=== PATIENT | female | born 1975 | race African-American/Black ===

== ENCOUNTER 2017-06-21 06:00 | Observation (INO) | payer MEDICAID ==
[2017-06-21] VITALS (11 sets, daily range): BP systolic 127–189; BP diastolic 82–122; PULSE 62–89; RESP 16–19; TEMP 98.3–98.6; O2SAT 97–100
[~2017-06-21] VITALS: Ht 152.4 cm; Wt 51.0 kg
[~2017-06-21 06:00] MED LIST: ZOFR4TAB3 SL
--- NOTE | 2017-06-21 06:19 | PD ---
HPI Chief Complaint: Chest Pain Time Seen by Provider: 06:15 Travel History International Travel<30 days: No Contact w/Intl Traveler<30days: No Traveled to known affect area: No History of Present Illness HPI The patient is a 42 year old female who presents to the [facility] emergency department with a history of chest pain that began 3 days ago. the pain is in the center of her chest to her back. right sided flank pain. It is constant and worsening with time. It is sharp in character. She has associated shortness of breath. It became unbearable at 8:30 PM last night. The pain is worse with taking a deep breath. She has had nausea and vomiting 1 x per day. She smokes 3-4 cigarettes per day. She denies any prior history of hypertension , hyperlipidemia, or diabetes mellitus. She denies having any known family history of heart disease. The patient reports that she last had a physical exam in November 2016. She denies having any prior history of stress testing. She denies any trauma to her chest. She denies participating in any new exercise program. She denies on review of systems any recent fevers, cough, congestion, neck pain, abdominal pain, vomiting, diarrhea, urinary symptoms, or neurologic symptoms. She denies having any lower extremity edema, calf pain, or erythema. She denies any prior history of DVT or PE. LMP: 06/11/17 PCP: Dr. Sheets. [facility] Past Medical History Narrative Medical The patient's past medical history is reportedly none. However, on review of the patient's electronic medical record the patient has been hypertensive on multiple evaluations in the emergency department. Medical History: Denies Significant Hx Diminished Hearing: No Immunizations Current: Yes ?: Not Past Surgical History Surgical History: No Previous Surgery Social History Alcohol Use: No Tobacco Use: Yes (3-5 cig a day x 4 yrs) Substance Use: No (DENIES) Allergies-Medications (Allergen,Severity, Reaction): Coded Allergies: No Known Allergies (Verified Adverse Reaction, Unknown, 06/21/17) Reported Meds & Prescriptions Reported Meds & Active Scripts Active Zofran Odt (Ondansetron Odt) 4 Mg Tab 4 Mg SL Q6HR PRN Review of Systems Except as stated in HPI: all other systems reviewed are Neg General / Constitutional: No: Fever Eyes: No: Visual changes HENT: No: Headaches Cardiovascular: Positive: Chest Pain or Discomfort Respiratory: Positive: Shortness of Breath Gastrointestinal: No: Abdominal Pain Genitourinary: No: Dysuria Musculoskeletal: No: Pain Skin: No Rash Neurologic: No: Weakness Psychiatric: No: Depression Endocrine: No: Polydipsia Hematologic/Lymphatic: No: Easy Bruising Physical Exam Narrative General: The patient is a well-developed well-nourished female in no acute distress. Head and Neck exam: Head is normocephalic atraumatic. Eyes: EOMI, pupils are equal round and reactive to light. Nose: Midline septum with pink mucous membranes Mouth: Dentition unremarkable. Moist mucus membranes. Posterior oropharynx is not erythematous. No tonsillar hypertrophy. Uvula midline. Airway patent. Neck: No palpable lymphadenopathy. No nuchal rigidity. No thyromegaly. Cardiovascular: Regular rate and rhythm without murmurs, gallops, or rubs. No pulse deficit to the extremities on simultaneous auscultation and palpation of her radial artery. Lungs: Clear to auscultation bilaterally. No wheezes, rhonchi, or rales. Abdomen: Soft, without tenderness to palpation in all 4 quadrants of the abdomen. No guarding, rebound, or rigidity. Normal bowel sounds are audible. No tenderness on palpation of McBurney's point. Extremities: No clubbing, cyanosis, or edema. 2+ pulses in all 4 extremities. No calf tenderness on palpation. Back: No spinous process tenderness to palpation. No costovertebral angle tenderness to palpation. Neurologic Exam: Grossly nonfocal. Skin Exam: No rash noted. Intact skin that is warm and dry. Data Data Last Documented VS Vital Signs Date Time Temp Pulse Resp B/P (MAP) Pulse Ox O2 Delivery O2 Flow Rate FiO2 06/21/17 06:47 70 18 189/115 (139) 100 Room Air 06/21/17 06:01 98.6 Orders Orders Electrocardiogram (06/21/17 06:18) B-Type Natriuretic Peptide (06/21/17 06:18) Ckmb (Isoenzyme) Profile (06/21/17 06:18) Complete Blood Count With Diff (06/21/17 06:18) Comprehensive Metabolic Panel (06/21/17 06:18) D-Dimer (06/21/17 06:18) Magnesium (Mg) (06/21/17:18) Prothrombin Time / Inr (Pt) (06/21/17:18) Act Partial Throm Time (Ptt) (06/21/17:18) Troponin I (06/21/17:18) Lipase (06/21/17:18) Chest, Single Ap (06/21/17:18) Ecg Monitoring (06/21/17:18) Bilateral Bp Monitoring (06/21/17:18) Iv Access Insert/Monitor (06/21/17:18) Oximetry (06/21/17:18) Oxygen Administration (06/21/17:18) Aspirin Chew (Aspirin Chew) (06/21/17 06:30) Nitroglycerin 2% Oint (Nitroglycerin 2% (06/21/17:30) Sodium Chloride 0.9% Flush (Ns Flush) (06/21/17:30) Sodium Chlorid 0.9% 500 Ml Inj (Ns 500 M (06/21/17 06:30) Ed Urine Pregnancytest Poc (06/21/17:18) Labs Laboratory Tests Test 06/21/17 06:30 White Blood Count 5.1 TH/MM3 Red Blood Count 4.04 MIL/MM3 Hemoglobin 11.8 GM/DL Hematocrit 35.9 % Mean Corpuscular Volume 88.9 FL Mean Corpuscular Hemoglobin 29.1 PG Mean Corpuscular Hemoglobin Concent 32.7 % Red Cell Distribution Width 13.4 % Platelet Count 234 TH/MM3 Mean Platelet Volume 8.8 FL Neutrophils (%) (Auto) 39.3 % Lymphocytes (%) (Auto) 44.0 % Monocytes (%) (Auto) 11.5 % Eosinophils (%) (Auto) 3.5 % Basophils (%) (Auto) 1.7 % Neutrophils # (Auto) 2.0 TH/MM3 Lymphocytes # (Auto) 2.3 TH/MM3 Monocytes # (Auto) 0.6 TH/MM3 Eosinophils # (Auto) 0.2 TH/MM3 Basophils # (Auto) 0.1 TH/MM3 CBC Comment DIFF FINAL Differential Comment MDM Medical Decision Making Medical Screen Exam Complete: Yes Emergency Medical Condition: Yes Medical Record Reviewed: Yes Interpretation(s) Last Impressions Chest X-Ray 06/21/17617 Signed Impressions: Service Date/Time: Wednesday, June 21, 2017 06:21 - CONCLUSION: 1. No acute cardiopulmonary disease. Brian Alvarenga MD Differential Diagnosis Acute coronary syndrome, versus aortic dissection, versus pulmonary embolism, versus pneumonia, versus pneumothorax, versus pleurisy, versus costochondritis Narrative Course During the course of the patients emergency department visit, the patients history, examination, and differential diagnosis were reviewed with the patient. The patient was placed on a desk monitor with oximetry and frequent blood pressure monitoring. The patient had IV access obtained and blood work sent for analysis. The patient had an ECG done on arrival that shows a sinus rhythm heart rate of 68, voltage criteria are met for LVH, QRS duration is 74 ms , QTC [address] segment elevation. T waves are inverted in V1. The patient was initially provided aspirin 324 mg by mouth 1, nitroglycerin 1 inch to chest wall. Normal saline a 500 mL bolus 1. The patients laboratory studies were reviewed and remarkable for a CBC that shows a white count of 5.1, hemoglobin 11.8, platelets 234 with monocytes 11.5 Radiology studies were reviewed and remarkable for a chest x-ray that shows no acute cardiopulmonary disease. The patient's chemistry and cardiac enzymes as well as PT PTT and d-dimer are pending at the conclusion of my shift. The patient's case will be checked out to the oncoming emergency physician to disposition the patient based on the conclusion of the patient's workup. Diagnosis Primary Impression: Chest pain, rule out acute myocardial infarction Additional Impression: Hypertension Qualified Codes: I10 - Essential (primary) hypertension Fany Walker MD Jun 21, 2017 06:19
[2017-06-21] MEDS ORDERED: ASPIRIN 81 MG CHEW TAB PO ONE (06:30)
[2017-06-21] MEDS ORDERED: SODIUM CHLORIDE 0.9% FLUSH 10 ML FLUSH IVF PRN ×2 (06:30→13:30)
[2017-06-21] MEDS ORDERED: NITROGLYCERIN 2% OINT 1 GM PACKET TOP ONE (06:30)
[2017-06-21] MEDS ORDERED: SODIUM CHLORID 0.9% 500 ML INJ 500 ML IV ONE (06:30)
--- NOTE | 2017-06-21 06:43 | RADRPT ---
EXAM DATE/TIME: 06/21/2017 06:21 [facility] COMPARISON: CHEST SINGLE AP, June 19, 2016, 3:26. INDICATIONS : Chest pain and headache x 2 days MEDICAL HISTORY : Hypertension. SURGICAL HISTORY : None. ENCOUNTER: Initial ACUITY: 2 days PAIN SCORE: 7/10 LOCATION: Bilateral chest FINDINGS: A single view of the chest demonstrates the lungs to be symmetrically aerated without evidence of mas s, infiltrate or effusion. The cardiomediastinal contours are unremarkable. Osseous structures are intact. CONCLUSION: 1. No acute cardiopulmonary disease. Brian Alvarenga MD on June 21, 2017 at 6:42 Board Certified Radiologist. This report was verified electronically.
[2017-06-21 06:55] LABS: BASOPHIL # 0.1 TH/MM3 (0-0.2); BASOPHIL % 1.7 % (0.0-2.0); EOSINOPHIL # 0.2 TH/MM3 (0-0.4); EOSINOPHIL % 3.5 % (0.0-4.0); HEMATOCRIT 35.9 % (35.0-46.0); HEMO FLAGS DIFF FINAL; LYMPHOCYTE # 2.3 TH/MM3 (1.0-4.8); MEAN CELL VOLUME 88.9 FL (80.0-100.0); MEAN CORPUSCULAR HEMOGLOBIN 29.1 PG (27.0-34.0); MEAN CORPUSCULAR HGB CONC 32.7 % (32.0-36.0); MONO % 11.5 % (0.0-8.0); NEUT % 39.3 % (16.0-70.0); PLATELET COUNT 234 TH/MM3 (150-450); RED BLOOD COUNT 4.04 MIL/MM3 (4.00-5.30); RED CELL DISTRIBUTION WIDTH 13.4 % (11.6-17.2); WHITE BLOOD COUNT 5.1 TH/MM3 (4.0-11.0)
[2017-06-21 07:10] LABS: APTT (PATIENT) 26.2 SEC (24.3-30.1); PROTHROMBIN TIME - PATIENT 10.7 SEC (9.8-11.6)
[2017-06-21 07:22] LABS: ANION GAP 9 MEQ/L (5-15); AST (GOT) 16 U/L (15-37); BICARBONATE 24.5 MEQ/L (21.0-32.0); BLOOD UREA NITROGEN 16 MG/DL (7-18); CHLORIDE 104 MEQ/L (98-107); GLOMERULAR FILTRATION RATE 98 ML/MIN (>89); MAGNESIUM 1.9 MG/DL (1.5-2.5); POTASSIUM 3.4 MEQ/L (3.5-5.1); SODIUM (NA) 137 MEQ/L (136-145)
[2017-06-21 07:28] LABS: ALKALINE PHOSPHATASE 62 U/L (45-117); ALT (GPT) 16 U/L (10-53); CREATINE KINASE 123 U/L (26-192); TOTAL BILIRUBIN ADULT 0.5 MG/DL (0.2-1.0)
--- NOTE | 2017-06-21 07:35 | PD ---
Physical Exam Date Seen by Provider: Jun 21, 2017 Time Seen by Provider: 07:00 Narrative The patient was signed out to me by Dr. Fany Walker at change of shift. The patient presented with complaints of chest pain 3 days. The patient was also noted to have elevated pressure. She reported headache as well. The patient's EKG and cardiac enzymes show no evidence of acute process. The patient had been given an aspirin and nitroglycerin. She's also had an inch of Nitropaste placed on her anterior chest wall. Data Data Last Documented VS Vital Signs Date Time Temp Pulse Resp B/P (MAP) Pulse Ox O2 Delivery O2 Flow Rate FiO2 06/21/17 07:12 71 19 186/122 (143) 100 Room Air 06/21/17 06:01 98.6 Orders Orders Electrocardiogram (06/21/17:18) B-Type Natriuretic Peptide (06/21/17:18) Ckmb (Isoenzyme) Profile (06/21/17:18) Complete Blood Count With Diff (06/21/17:18) Comprehensive Metabolic Panel (06/21/17:18) D-Dimer (06/21/17:18) Magnesium (Mg) (06/21/17:18) Prothrombin Time / Inr (Pt) (06/21/17:18) Act Partial Throm Time (Ptt) (06/21/17:18) Troponin I (06/21/17:18) Lipase (06/21/17:18) Chest, Single Ap (06/21/17:18) Ecg Monitoring (06/21/17:18) Bilateral Bp Monitoring (06/21/17:18) Iv Access Insert/Monitor (06/21/17:18) Oximetry (06/21/17:18) Oxygen Administration (06/21/17:18) Aspirin Chew (Aspirin Chew) (06/21/17 06:30) Nitroglycerin 2% Oint (Nitroglycerin 2% (06/21/17 06:30) Sodium Chloride 0.9% Flush (Ns Flush) (06/21/17 06:30) Sodium Chlorid 0.9% 500 Ml Inj (Ns 500 M (06/21/17 06:30) Ed Urine Pregnancytest Poc (11/6/17 06:18) CKMB (06/21/17 06:30) CKMB% (06/21/17 06:30) Admit Order (Ed Use Only) (06/21/17 07:36) Labs Laboratory Tests Test 06/21/17 06:30 White Blood Count 5.1 TH/MM3 Red Blood Count 4.04 MIL/MM3 Hemoglobin 11.8 GM/DL Hematocrit 35.9 % Mean Corpuscular Volume 88.9 FL Mean Corpuscular Hemoglobin 29.1 PG Mean Corpuscular Hemoglobin Concent 32.7 % Red Cell Distribution Width 13.4 % Platelet Count 234 TH/MM3 Mean Platelet Volume 8.8 FL Neutrophils (%) (Auto) 39.3 % Lymphocytes (%) (Auto) 44.0 % Monocytes (%) (Auto) 11.5 % Eosinophils (%) (Auto) 3.5 % Basophils (%) (Auto) 1.7 % Neutrophils # (Auto) 2.0 TH/MM3 Lymphocytes # (Auto) 2.3 TH/MM3 Monocytes # (Auto) 0.6 TH/MM3 Eosinophils # (Auto) 0.2 TH/MM3 Basophils # (Auto) 0.1 TH/MM3 CBC Comment DIFF FINAL Differential Comment Prothrombin Time 10.7 SEC Prothromb Time International Ratio 1.0 RATIO Activated Partial Thromboplast Time 26.2 SEC D-Dimer Quantitative (PE/DVT) 0.22 MG/L FEU Blood Urea Nitrogen 16 MG/DL Creatinine 0.79 MG/DL Random Glucose 87 MG/DL Total Protein 7.4 GM/DL Albumin 3.7 GM/DL Calcium Level 8.5 MG/DL Magnesium Level 1.9 MG/DL Alkaline Phosphatase 62 U/L Aspartate Amino Transf (AST/SGOT) 16 U/L Alanine Aminotransferase (ALT/SGPT) 16 U/L Total Bilirubin 0.5 MG/DL Sodium Level 137 MEQ/L Potassium Level 3.4 MEQ/L Chloride Level 104 MEQ/L Carbon Dioxide Level 24.5 MEQ/L Anion Gap 9 MEQ/L Estimat Glomerular Filtration Rate 98 ML/MIN Total Creatine Kinase 123 U/L Creatine Kinase MB LESS THAN 0.5 NG/ML Troponin I LESS THAN 0.02 NG/ML B-Type Natriuretic Peptide 14 PG/ML Lipase 147 U/L MDM Medical Record Reviewed: Yes Supervised Visit with KODY: No Narrative Course 42-year-old female presents with chest pain 3 days. Patient also reported headache. Blood pressure noted to be elevated. She's had elevated blood pressure on previous visits. She is currently not on any medication for her blood pressure. The patient does smoke cigarettes. EKG and cardiac enzymes are negative for acute process. The patient was initially going to be admitted to the chest pain center however she developed a headache and started vomiting. Given this and her elevated blood pressure, the chest pain center admission was canceled. CT brain ordered which shows no evidence of acute intracranial pathology. The patient be admitted to on-call medicine team. Diagnosis Primary Impression: Chest pain, rule out acute myocardial infarction Additional Impressions: Hypertensive urgency Cephalgia Admitting Information Admitting Physician Requests: Observation Joe Gomez MD Jun 21, 2017 07:35
[2017-06-21 07:40] LABS: CKMB LESS THAN 0.5 NG/ML (0.5-3.6)
[2017-06-21] MEDS ORDERED: METOPROLOL TARTRATE 5 MG/5 ML VIAL IV PUSH ONE (07:45)
--- NOTE | 2017-06-21 08:12 | EKG ---
Date Performed: 06/21/2017 Time Performed: 06:28:41 PTAGE: 42 years EKG: Sinus rhythm VOLTAGE CRITERIA FOR LVH ABNORMAL ECG PREVIOUS TRACING : 06/19/2016 04.27 No significant change from previous tracing noted. DOCTOR: Tyrone Berrios Interpretating Date/Time 06/21/2017 08:11:16
[2017-06-21] MEDS ORDERED: ONDANSETRON HCL 4 MG/2 ML VIAL IV PUSH ONE (09:15)
--- NOTE | 2017-06-21 09:20 | RADRPT ---
EXAM DATE/TIME: 06/21/2017 09:11 [facility] COMPARISON: No previous studies available for comparison. INDICATIONS : Chest pain. Hypertension. Cephalgia. RADIATION DOSE: 30.91 CTDIvol (mGy) MEDICAL HISTORY : None SURGICAL HISTORY : None. ENCOUNTER: Initial ACUITY: 1 day PAIN SCALE: 6/10 LOCATION: cranial TECHNIQUE: Multiple contiguous axial images were obtained of the head. Using automated exposure control and adj ustment of the mA and/or kV according to patient size, radiation dose was kept as low as reasonably a chievable to obtain optimal diagnostic quality images. DICOM format image data is available electro nically for review and comparison. FINDINGS: CEREBRUM: The ventricles are normal for age. No evidence of midline shift, mass lesion, hemorrhage or acute in farction. No extra-axial fluid collections are seen. POSTERIOR FOSSA: The cerebellum and brainstem are intact. The 4th ventricle is midline. The cerebellopontine angle i s unremarkable. EXTRACRANIAL: The visualized portion of the orbits is intact. SKULL: The calvaria is intact. No evidence of skull fracture. CONCLUSION: No acute intracranial disease. Basim Morris MD on June 21, 2017 at 9:17 Board Certified Radiologist. This report was verified electronically.
[2017-06-21] MEDS ORDERED: SODIUM CHLORIDE 0.9% FLUSH 10 ML FLUSH IV FLUSH PRN (10:45)
[2017-06-21] MEDS: SODIUM CHLORIDE 0.9% FLUSH 10 ML FLUSH IV FLUSH SCH ×2 (11:00→21:13)
[2017-06-21] MEDS ORDERED: MORPHINE SULFATE 4 MG/ML INJ IV PUSH ONE (11:15)
[2017-06-21] MEDS ORDERED: BAYE325T PO (12:26)
--- NOTE | 2017-06-21 12:36 | HHI.HP ---
HPI Service Family Medicine Primary Care Physician No Primary Care Physician Admission Diagnosis Chest pain, hypertension Diagnoses: International Travel<30 Days: No Contact w/Intl Traveler<30days: No Known Affected Area: No History of Present Illness Mrs. Dutton is a 42 yo F patient of with PMH of anxiety who presents to [facility] with chest pain, shortness of breath, headaches, and back pain. Patient's chest pain has been present for 4 days; it is central and radiates to central back. Patient feels that pain is "electrifying" in nature. Pain is present when she is active but not at rest; she states that it is when she gets "winded." Pain is 9/10 in severity when present; not present otherwise. Duration of pain based on activity duration. Patient concerned that her "lungs will collapse" due to associated shortness of breath. Patient has chronic shortness of breath when sleeping; no cough or sputum. Patient has chronic headaches; headaches last for 1-4+ hrs and occur multiple times a week; patient sometimes gets vision changes with headaches. Patient also has difficulty sleeping chronically. Patient has vomiting when eating food recently but has not vomited in several days due to lack of oral intake [Per EMR review, patient last seen 06/18 for vomiting, diarrhea. CBC, BMP, lipase wnl. CXR wnl. EKG unremarkable. test negative]. Patient has tried to stay hydrated but has not been eating adequately. Patient also reports epigastric pain associated with chest pain; she did not have this initially when she was vomiting. Patient had recent diarrhea which resolved. No pain with urination or urinary urgency. Regarding patient's history of anxiety, patient had hospitalization for shortness of breath which was diagnosed as a panic attack several years previously but has not had recent anxiety episodes. Interval History: Patient evaluated in ED: EKG suggests LVH with voltage criteria. Troponins, CBC , CMP, lipase unremarkable. CXR unremarkable. D-dimer negative. Patient given Metoprol 5mg IV x1 for DBP 110. Patient given ASA 324mg, nitroglycerin for chest pain. Review of Systems Constitutional: DENIES: Fever, Chills Eyes: COMPLAINS OF: Blurred vision (last night), DENIES: Vision loss Respiratory: COMPLAINS OF: Shortness of breath, DENIES: Cough Cardiovascular: COMPLAINS OF: Chest pain, DENIES: Syncope Gastrointestinal: COMPLAINS OF: Abdominal pain, Nausea Genitourinary: DENIES: Urinary frequency, Dysuria Musculoskeletal: COMPLAINS OF: Back pain, DENIES: Joint Swelling Hematologic/lymphatic: DENIES: Bruising, Lymphadenopathy Neurologic: COMPLAINS OF: Headache, DENIES: Localized weakness Psychiatric: COMPLAINS OF: Anxiety (chronic), DENIES: Confusion Past Family Social History Past Medical History Per EMR Anxiety PAP smear 03/2016: pap smear negative + for high risk HPV. Need to repeat in 2016 OB History Menarche: 14 Cycle: Monthly, lasts for 5 days sexually active/partner: male vaginal deliveries without any issues Past Surgical History Per EMR Tubal ligation Reported Medications Ty aspirin Aleve Women's vitamins Allergies: Coded Allergies: No Known Allergies (Verified Allergy, Unknown, 06/21/17) Family History Mother: at young age due to related issues. HTN Father: HTN Brother- pneumonia history, sarcoidosis Unspecified HTN and DM Sister with heart murmur Sister with unspecified enlarged heart Social History Living Situation: Son, partner (male) Alcohol: Beer 16oz 6pack daily. Has decreased to 4 beers/week since 03/2016 Tobacco: 1ppd since age 25, decreased to 1pack/week since 03/2016 Ilicit: marijuana monthly Physical Exam Vital Signs Vital Signs Date Time Temp Pulse Resp B/P (MAP) Pulse Ox O2 Delivery O2 Flow Rate FiO2 06/21/17 12:16 148/98 (115) 06/21/17 10:58 68 17 138/90 (106) 100 Room Air 06/21/17 07:12 71 19 186/122 (143) 100 Room Air 06/21/17 07:12 71 18 100 Room Air 06/21/17 06:47 70 18 189/115 (139) 100 Room Air 06/21/17 06:25 16 97 Room Air 06/21/17 06:25 97 Room Air 06/21/17 06:01 98.6 74 16 177/110 (132) 100 Room Air Physical Exam GENERAL: Patient appears comfortable, in no acute distress. SKIN: Warm and dry, no rashes appreciated EYES: No scleral icterus, injection, or drainage. HENT: Head: Normocephalic. Mouth: No lesions appreciated. NECK: No appreciated lymphadenopathy or thyromegaly CARDIOVASCULAR: Regular rate and rhythm without murmurs. Normal peripheral perfusion in lower extremities. No LE edema RESPIRATORY: Normal respiratory rate. Lungs clear to auscultation bilaterally. back: No spinous process pain elicited in T spine. Some back pain to deep palpation to R of T spine over ~7-8th ribs GASTROINTESTINAL: Abdomen soft, nondistended, nontender. Bowel sounds normal. MUSCULOSKELETAL: No lower extremity swelling. No appreciated calf asymmetry. NEURO/PSYCH: Awake, alert, and oriented. Cranial nerves grossly normal. Grossly normal motor and sensory function. Laboratory Laboratory Tests Test 06/21/17 06:30 White Blood Count 5.1 Red Blood Count 4.04 Hemoglobin 11.8 Hematocrit 35.9 Mean Corpuscular Volume 88.9 Mean Corpuscular Hemoglobin 29.1 Mean Corpuscular Hemoglobin Concent 32.7 Red Cell Distribution Width 13.4 Platelet Count 234 Mean Platelet Volume 8.8 Neutrophils (%) (Auto) 39.3 Lymphocytes (%) (Auto) 44.0 Monocytes (%) (Auto) 11.5 Eosinophils (%) (Auto) 3.5 Basophils (%) (Auto) 1.7 Neutrophils # (Auto) 2.0 Lymphocytes # (Auto) 2.3 Monocytes # (Auto) 0.6 Eosinophils # (Auto) 0.2 Basophils # (Auto) 0.1 CBC Comment DIFF FINAL Differential Comment Prothrombin Time 10.7 Prothromb Time International Ratio 1.0 Activated Partial Thromboplast Time 26.2 D-Dimer Quantitative (PE/DVT) 0.22 Blood Urea Nitrogen 16 Creatinine 0.79 Random Glucose 87 Total Protein 7.4 Albumin 3.7 Calcium Level 8.5 Magnesium Level 1.9 Alkaline Phosphatase 62 Aspartate Amino Transf (AST/SGOT) 16 Alanine Aminotransferase (ALT/SGPT) 16 Total Bilirubin 0.5 Sodium Level 137 Potassium Level 3.4 Chloride Level 104 Carbon Dioxide Level 24.5 Anion Gap 9 Estimat Glomerular Filtration Rate 98 Total Creatine Kinase 123 Creatine Kinase MB LESS THAN 0.5 Troponin I LESS THAN 0.02 B-Type Natriuretic Peptide 14 Lipase 147 Result Diagram: 06/21/1762906/21/17629 Imaging Last Impressions Head CT 06/21/17902 Signed Impressions: Service Date/Time: Wednesday, June 21, 2017 09:11 - CONCLUSION: No acute intracranial disease. Basim Morris MD Chest X-Ray 06/21/17617 Signed Impressions: Service Date/Time: Wednesday, June 21, 2017 06:21 - CONCLUSION: 1. No acute cardiopulmonary disease. MD Denisse Morillo VTE Risk Assessment Denisse VTE Risk Assessment: No/Low Risk (score <= 1) Vanrini Risk Assessment Model Point Value = 1 Point Value = 2 Point Value = 3 Point Value = 5 Age 41-60 Minor surgery BMI > 25 kg/m2 Swollen legs Varicose veins or History of unexplained or recurrent spontaneous Oral contraceptives or hormone replacement Sepsis (< 1 month) Serious lung disease, including pneumonia (< 1 month) Abnormal pulmonary function Acute myocardial infarction Congestive heart failure (< 1 month) History of inflammatory bowel disease Medical patient at bed rest Age 61-74 Arthroscopic surgery Major open surgery (> 45 min) Laparoscopic surgery (> 45 min) Malignancy Confined to bed (> 72 hours) Immobilizing plaster cast Central venous access Age >= 75 History of VTE Family history of VTE Factor V Leiden Prothrombin [id number] Lupus anticoagulant Anticardiolipin antibodies Elevated serum homocysteine Heparin-induced thrombocytopenia Other congenital or acquired thrombophilia Stroke (< 1 month) Elective arthroplasty Hip, pelvis, or leg fracture Acute spinal cord injury (< 1 month) Prophylaxis Regimen Total Risk Factor Score Risk Level Prophylaxis Regimen 0-1 Low Early ambulation 2 Moderate Order ONE of the following: *Sequential Compression Device (SCD) *Heparin 5000 units SQ BID 3-4 Higher Order ONE of the following medications: *Heparin 5000 units SQ TID *Enoxaparin/Lovenox 40 mg SQ daily (WT < 150 kg, CrCl > 30 mL/min) *Enoxaparin/Lovenox 30 mg SQ daily (WT < 150 kg, CrCl > 10-29 mL/min) *Enoxaparin/Lovenox 30 mg SQ BID (WT < 150 kg, CrCl > 30 mL/min) AND/OR *Sequential Compression Device (SCD) 5 or more Highest Order ONE of the following medications: *Heparin 5000 units SQ TID (Preferred with Epidurals) *Enoxaparin/Lovenox 40 mg SQ daily (WT < 150 kg, CrCl > 30 mL/min) *Enoxaparin/Lovenox 30 mg SQ daily (WT < 150 kg, CrCl > 10-29 mL/min) *Enoxaparin/Lovenox 30 mg SQ BID (WT < 150 kg, CrCl > 30 mL/min) AND *Sequential Compression Device (SCD) Assessment and Plan Assessment and Plan Mrs. Dutton is a 42 yo F with: Code Status Full Code Problem List: (1) Chest pain, radiating ICD Codes: R07.89 - Other chest pain Plan: Impression: 4 days of exertional chest pain in patient with history of HTN and anxiety. History of tobacco abuse Although pain is radiating to back, normal D-dimer suggests lack of dissection or need for further imaging such as CTA CBC, CMP, Lipase, CXR wnl -Continue ACS rule-out: -EKG x1 with LVH suggestion but not suggestive of ACS -CKMB x1 wnl -Troponin x1 wnl -Continue ASA daily -Will risk stratify for CAD with Lipid profile, A1C -Will check echo -Will attempt HTN control --Will check UA, UDS (2) Hypertensive urgency ICD Codes: I16.0 - Hypertensive urgency Status: Acute Plan: Impression: BP on admission of 177/110. Per EMR review, history of untreated HTN on prior ED visits. s/p Metoprolol 5mg IV x1 in ED -Will give PRN Hydralazine 10mg for BP 170/90 -Will start HCTZ 25mg with plan to continue on discharge -Will consider addition of Metoprolol/switching after checking UDS for possible coexistent headache PPX benefit (3) LVH (left ventricular hypertrophy) ICD Codes: I51.7 - Cardiomegaly Status: Chronic Plan: Impression: EKG on admission with voltage elevation suggestive of LVH. Questionable FH of sister with enlarged heart. -Will check Echo to further describe (4) Shortness of breath ICD Codes: R06.02 - Shortness of breath Status: Acute Plan: Impression: Reported SOB in association with chest pain. Normal exam. History of tobacco abuse CXR wnl on admission. D-dimer wnl on admission -Will continue to monitor -Will plan to discuss smoking cessation prior to discharge (5) Headache ICD Codes: R51 - Headache Status: Chronic Plan: Impression: Chronic headache multiple times a week lasting 1-4+ hrs. Not defined as unilateral or pulsatile; occasional visual changes but not with reported photophobia. Not obviously migrainous in etiology. In association with history of hypertension in EMR Head CT in ED wnl -Will attempt HTN control -Due to reported severity today, will attempt to treat with Diphenhydramine and Prochlorperazine -Will give Acetaminophen 650mg PRN (6) Vomiting ICD Codes: R11.10 - Vomiting, unspecified Status: Resolved Plan: Impression: Recent vomiting; patient without vomiting for several days but decreased oral intake due to fear of vomiting. No postprandial pain or history of GI disease -Will give Zofran PRN -Will give heart healthy diet; if still present or decreased intake will plan to work-up further (7) Hyposomnia, insomnia or sleeplessness associated with anxiety ICD Codes: F51.05 - Insomnia due to other mental disorder; F41.9 - Anxiety disorder, unspecified Status: Chronic Plan: Impression: History of distant panic attack; no recent symptoms. 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, Trazodone, Zolpidem per EMR review -Discussed with patient that will plan to re-initiate Trazodone prior to discharge (8) DVT PPX Status: Acute Plan: -Will defer chemical PPX since young with low Caprini score -Will give mechanical PPX (9) Fluids, electrolytes, and nutrition Status: Acute Plan: Fluids: will defer at this time and attempt oral intake Electrolytes: Mild hypokalemia (K 3.4); will replete Nutrition: Heart healthy diet Physician Certification 2 Midnight Certification Type: Admission for Inpatient Services Order for Inpatient Services The services are ordered in accordance with Medicare regulations or non- Medicare payer requirements, as applicable. In the case of services not specified as inpatient-only, they are appropriately provided as inpatient services in accordance with the 2-midnight benchmark. Estimated LOS (days): 3 days is the estimated time the patient will need to remain in the hospital, assuming treatment plan goals are met and no additional complications. Post-Hospital Plan: Home Problem Qualifiers (1) Headache: Qualified Codes: R51 - Headache (2) Vomiting: Qualified Codes: R11.2 - Nausea with vomiting, unspecified Xavi Xiao MD, R3 Jun 21, 2017 12:36
[2017-06-21] MEDS ORDERED: ONDANSETRON ODT 4 MG TAB PO/SL PRN (13:30)
[2017-06-21] MEDS ORDERED: PROCHLORPERAZINE INJ 10 MG/2 ML VIAL IVP ONE (13:30)
[2017-06-21] MEDS ORDERED: hydrALAZINE HCL 10 MG TAB PO PRN (13:30)
[2017-06-21] MEDS ORDERED: diphenhydrAMINE HCL 50 MG/ML VIAL IVP ONE (13:30)
[2017-06-21] MEDS ORDERED: ACETAMINOPHEN 325 MG TAB PO PRN (13:45)
[2017-06-21] MEDS ORDERED: POTASSIUM CHLORIDE 20 MEQ CONTROLLED RELEASE TAB PO ONE (18:00)
[2017-06-21] MEDS ORDERED: HYDROCHLOROTHIAZIDE 25 MG TAB PO ONE (19:00)
[2017-06-22] VITALS (7 sets, daily range): BP systolic 130–144; BP diastolic 82–91; PULSE 66–79; RESP 16–18; TEMP 98–98.2; O2SAT 98–99
[2017-06-22 05:11] LABS: AUTOMATED NEUTROPHIL # 1.6 TH/MM3 (1.8-7.7); BASOPHIL # 0.1 TH/MM3 (0-0.2); BASOPHIL % 1.2 % (0.0-2.0); EOSINOPHIL # 0.2 TH/MM3 (0-0.4); HEMATOCRIT 33.8 % (35.0-46.0); HEMO FLAGS DIFF FINAL; LYMPH % 49.3 % (9.0-44.0); LYMPHOCYTE # 2.4 TH/MM3 (1.0-4.8); MEAN CELL VOLUME 88.7 FL (80.0-100.0); MEAN CORPUSCULAR HGB CONC 32.7 % (32.0-36.0); MONO % 12.3 % (0.0-8.0); NEUT % 33.2 % (16.0-70.0); PLATELET COUNT 216 TH/MM3 (150-450); RED BLOOD COUNT 3.81 MIL/MM3 (4.00-5.30); RED CELL DISTRIBUTION WIDTH 13.2 % (11.6-17.2); WHITE BLOOD COUNT 4.9 TH/MM3 (4.0-11.0)
[2017-06-22 05:42] LABS: ANION GAP 10 MEQ/L (5-15); BLOOD UREA NITROGEN 10 MG/DL (7-18); CHLORIDE 106 MEQ/L (98-107); GLOMERULAR FILTRATION RATE 91 ML/MIN (>89); SODIUM (NA) 139 MEQ/L (136-145)
[2017-06-22 05:48] LABS: LDL CHOLESTEROL 83 MG/DL (0-99)
[2017-06-22] MEDS: SODIUM CHLORIDE 0.9% FLUSH 10 ML FLUSH IV FLUSH SCH (08:39)
[2017-06-22] MEDS ORDERED: ASPIRIN 81 MG CHEW TAB CHEW SCH (09:00)
[2017-06-22] MEDS ORDERED: HYDROCHLOROTHIAZIDE 25 MG TAB PO SCH (09:00)
[2017-06-22] MEDS ORDERED: METOPROLOL TARTRATE 25 MG TAB PO SCH (09:15)
[2017-06-22] MEDS ORDERED: PILL SPLITTER OTHER PRN (09:30)
--- NOTE | 2017-06-22 10:10 | HHI.HP ---
HPI Service Family Medicine Primary Care Physician No Primary Care Physician Admission Diagnosis Chest pain, hypertension Diagnoses: (1) Chest pain, radiating Diagnosis: Principal (2) Hypertensive urgency Diagnosis: Principal (3) LVH (left ventricular hypertrophy) Diagnosis: Principal (4) Shortness of breath Diagnosis: Principal (5) Headache Diagnosis: Principal (6) Vomiting Diagnosis: Principal (7) Hyposomnia, insomnia or sleeplessness associated with anxiety Diagnosis: Principal (8) DVT PPX Diagnosis: Principal (9) Fluids, electrolytes, and nutrition Diagnosis: Principal International Travel<30 Days: No Contact w/Intl Traveler<30days: No Known Affected Area: No History of Present Illness Mrs. Dutton is a 42 yo F patient of with PMH of anxiety and panic attacks who presented to [facility] ED with chest pain, shortness of breath, headaches, and back pain. Patient's chest pain had been present for 4 days prior to admission; it is central and radiates to central back. Patient feels that pain is "electrifying" in nature. Pain is present when she is active but not at rest; she states that it is when she gets "winded." Pain is 9/10 in severity when present; not present otherwise. Duration of pain based on activity duration. Patient concerned that her "lungs will collapse" due to associated shortness of breath. Patient has chronic shortness of breath when sleeping; no cough or sputum. Patient has chronic headaches; headaches last for 1-4+ hrs and occur multiple times a week especially with stress at work; patient sometimes gets vision changes with headaches. She describes her headaches as "a tight band around her head that squeezes" and she takes various OTC meds but not on a daily basis. Patient also has difficulty sleeping chronically. Patient has vomiting when eating food recently but has not vomited in several days due to lack of oral intake [Per EMR review, patient last seen 06/18 for vomiting, diarrhea. CBC, BMP , lipase wnl. CXR wnl. EKG unremarkable. test negative]. Patient has tried to stay hydrated but has not been eating adequately. Patient also reports epigastric pain associated with chest pain; she did not have this initially when she was vomiting. Patient had recent diarrhea which resolved. No pain with urination or urinary urgency. Regarding patient's history of anxiety, patient had hospitalization for shortness of breath which was diagnosed as a panic attack several years previously but has not had recent anxiety episodes requiring urgent treatment as she "just deals with things herself". Interval History: Patient evaluated in ED: EKG suggests LVH with voltage criteria. Troponins, CBC , CMP, lipase unremarkable. CXR unremarkable. D-dimer negative. Patient given Metoprol 5mg IV x1 for DBP 110. Patient given ASA 324mg, nitroglycerin for chest pain. All her tests and labs were normal. She has atypical chest pain. She is eating well today and reports sleeping well last night. She is wanting to go home later today after her echocardiogram is done. She is fine with forgoing further workup at this time and following back up with her primary care Dr. Review of Systems Other Constitutional: DENIES: Fever, Chills Eyes: COMPLAINS OF: Blurred vision (last night), DENIES: Vision loss Respiratory: COMPLAINS OF: Shortness of breath, DENIES: Cough Cardiovascular: COMPLAINS OF: Chest pain, DENIES: Syncope Gastrointestinal: COMPLAINS OF: Abdominal pain, Nausea Genitourinary: DENIES: Urinary frequency, Dysuria Musculoskeletal: COMPLAINS OF: Back pain, DENIES: Joint Swelling Hematologic/lymphatic: DENIES: Bruising, Lymphadenopathy Neurologic: COMPLAINS OF: Headache, DENIES: Localized weakness Psychiatric: COMPLAINS OF: Anxiety (chronic), DENIES: Confusion Past Family Social History Past Medical History Per EMR Anxiety PAP smear 03/2016: pap smear negative + for high risk HPV. Need to repeat in 2016 OB History Menarche: 14 Cycle: Monthly, lasts for 5 days sexually active/partner: male her vaginal deliveries without any issues Past Surgical History Per EMR Tubal ligation Allergies: Coded Allergies: No Known Allergies (Verified Allergy, Unknown, 06/21/17) Family History Mother: at young age due to related issues. HTN Father: HTN Brother- pneumonia history, sarcoidosis Unspecified HTN and DM Sister with heart murmur Sister with unspecified enlarged heart Social History Living Situation: Son, Alcohol: Beer 16oz 6pack daily. Has decreased to 4 beers/week since 03/2016 Tobacco: 1ppd since age 25, decreased to 1pack/week since 03/2016 Ilicit: marijuana monthly Physical Exam Vital Signs Vital Signs Date Time Temp Pulse Resp B/P (MAP) Pulse Ox O2 Delivery O2 Flow Rate FiO2 06/22/17 07:38 98.0 79 16 144/91 (108) 98 06/22/17 07:22 74 06/22/17 04:01 66 06/22/17 01:54 98.2 79 18 133/88 (103) 99 06/22/17 00:26 78 06/21/17 21:02 98.3 89 18 127/82 (97) 98 06/21/17 20:00 98 06/21/17 20:00 84 06/21/17 16:23 98.3 70 16 129/83 (98) 100 06/21/17 16:00 62 06/21/17 12:16 148/98 (115) 06/21/17 10:58 68 17 138/90 (106) 100 Room Air 06/21/17 10:52 99 21 Physical Exam GENERAL: Patient appears comfortable, in no acute distress. She is able to answer all questions and is not complaining of pain SKIN: Warm and dry, no rashes appreciated EYES: No scleral icterus, injection, or drainage. HENT: Head: Normocephalic. Mouth: No lesions appreciated. NECK: No appreciated lymphadenopathy or thyromegaly CARDIOVASCULAR: Regular rate and rhythm without murmurs. Normal peripheral perfusion in lower extremities. No LE edema RESPIRATORY: Normal respiratory rate. Lungs clear to auscultation bilaterally. back: No spinous process pain elicited in T spine. Some back pain to deep palpation to R of T spine over ~7-8th ribs GASTROINTESTINAL: Abdomen soft, nondistended, nontender. Bowel sounds normal. MUSCULOSKELETAL: No lower extremity swelling. No appreciated calf asymmetry. NEURO/PSYCH: Awake, alert, and oriented. Cranial nerves grossly normal. Grossly normal motor and sensory function. Laboratory Laboratory Tests Test 06/21/17 15:55 06/21/17 19:38 06/22/17 04:17 Troponin I LESS THAN 0.02 LESS THAN 0.02 White Blood Count 4.9 Red Blood Count 3.81 Hemoglobin 11.1 Hematocrit 33.8 Mean Corpuscular Volume 88.7 Mean Corpuscular Hemoglobin 29.0 Mean Corpuscular Hemoglobin Concent 32.7 Red Cell Distribution Width 13.2 Platelet Count 216 Mean Platelet Volume 9.1 Neutrophils (%) (Auto) 33.2 Lymphocytes (%) (Auto) 49.3 Monocytes (%) (Auto) 12.3 Eosinophils (%) (Auto) 4.0 Basophils (%) (Auto) 1.2 Neutrophils # (Auto) 1.6 Lymphocytes # (Auto) 2.4 Monocytes # (Auto) 0.6 Eosinophils # (Auto) 0.2 Basophils # (Auto) 0.1 CBC Comment DIFF FINAL Differential Comment Blood Urea Nitrogen 10 Creatinine 0.84 Random Glucose 84 Calcium Level 8.6 Sodium Level 139 Potassium Level 4.0 Chloride Level 106 Carbon Dioxide Level 23.0 Anion Gap 10 Estimat Glomerular Filtration Rate 91 Triglycerides Level 57 Cholesterol Level 163 LDL Cholesterol 83 HDL Cholesterol 69.0 Cholesterol/HDL Ratio 2.36 Result Diagram: 06/22/1741606/22/17416 Imaging Last Impressions Head CT 06/21/17902 Signed Impressions: Service Date/Time: Wednesday, June 21, 2017 09:11 - CONCLUSION: No acute intracranial disease. Basim Morris MD Chest X-Ray 06/21/17617 Signed Impressions: Service Date/Time: Wednesday, June 21, 2017 06:21 - CONCLUSION: 1. No acute cardiopulmonary disease. Brian Alvarenga MD Capcristyi VTE Risk Assessment Caprini VTE Risk Assessment: No/Low Risk (score <= 1) Caprini Risk Assessment Model Point Value = 1 Point Value = 2 Point Value = 3 Point Value = 5 Age 41-60 Minor surgery BMI > 25 kg/m2 Swollen legs Varicose veins or History of unexplained or recurrent spontaneous Oral contraceptives or hormone replacement Sepsis (< 1 month) Serious lung disease, including pneumonia (< 1 month) Abnormal pulmonary function Acute myocardial infarction Congestive heart failure (< 1 month) History of inflammatory bowel disease Medical patient at bed rest Age 61-74 Arthroscopic surgery Major open surgery (> 45 min) Laparoscopic surgery (> 45 min) Malignancy Confined to bed (> 72 hours) Immobilizing plaster cast Central venous access Age >= 75 History of VTE Family history of VTE Factor V Leiden Prothrombin [id number] Lupus anticoagulant Anticardiolipin antibodies Elevated serum homocysteine Heparin-induced thrombocytopenia Other congenital or acquired thrombophilia Stroke (< 1 month) Elective arthroplasty Hip, pelvis, or leg fracture Acute spinal cord injury (< 1 month) Prophylaxis Regimen Total Risk Factor Score Risk Level Prophylaxis Regimen 0-1 Low Early ambulation 2 Moderate Order ONE of the following: *Sequential Compression Device (SCD) *Heparin 5000 units SQ BID 3-4 Higher Order ONE of the following medications: *Heparin 5000 units SQ TID *Enoxaparin/Lovenox 40 mg SQ daily (WT < 150 kg, CrCl > 30 mL/min) *Enoxaparin/Lovenox 30 mg SQ daily (WT < 150 kg, CrCl > 10-29 mL/min) *Enoxaparin/Lovenox 30 mg SQ BID (WT < 150 kg, CrCl > 30 mL/min) AND/OR *Sequential Compression Device (SCD) 5 or more Highest Order ONE of the following medications: *Heparin 5000 units SQ TID (Preferred with Epidurals) *Enoxaparin/Lovenox 40 mg SQ daily (WT < 150 kg, CrCl > 30 mL/min) *Enoxaparin/Lovenox 30 mg SQ daily (WT < 150 kg, CrCl > 10-29 mL/min) *Enoxaparin/Lovenox 30 mg SQ BID (WT < 150 kg, CrCl > 30 mL/min) AND *Sequential Compression Device (SCD) Assessment and Plan Assessment and Plan Mrs. Dutton is a 42 yo F with: Problem List: (1) Chest pain, radiating ICD Codes: R07.89 - Other chest pain Plan: Impression: 4 days of exertional chest pain in patient with history of HTN and anxiety. History of tobacco abuse Although pain is radiating to back, normal D-dimer suggests lack of dissection or need for further imaging such as CTA CBC, CMP, Lipase, CXR wnl -Continue ACS rule-out: -EKG with LVH suggestion but not suggestive of ACS -CKMB x1 wnl -Troponin wnl -Continue ASA daily -Will risk stratify for CAD with Lipid profile, A1C -Will check echo, pending today -Will attempt HTN control --Will check UA, UDS - she has atypical chest pain as it was continuous for 4 days. Cardiac related pain continuously for 4 days should result in an elevated troponin and hers are normal. a normal D dimer suggests no PE or other clot as well she does state her chest pain is worse at work when she is under stress and "running around" and that is also when she gets her headaches. can consider further treatment as needed for anxiety. she may benefit from an SSRI or counselling (2) Hypertensive urgency ICD Codes: I16.0 - Hypertensive urgency Status: Acute Plan: Impression: BP on admission of 177/110. Per EMR review, history of untreated HTN on prior ED visits. s/p Metoprolol 5mg IV x1 in ED -Will give PRN Hydralazine 10mg for BP 170/90 -Will start HCTZ 25mg with plan to continue on discharge -Will add Metoprolol/switching after checking UDS for possible coexistent headache PPX benefit treating the HTN should help the LVH (3) LVH (left ventricular hypertrophy) ICD Codes: I51.7 - Cardiomegaly Status: Chronic Plan: Impression: EKG on admission with voltage elevation suggestive of LVH. Questionable FH of sister with enlarged heart. -Will check Echo to further describe LVH is suggestive of HTN and she will be started on meds (4) Shortness of breath ICD Codes: R06.02 - Shortness of breath Status: Acute Plan: Impression: Reported SOB in association with chest pain. Normal exam. History of tobacco abuse CXR wnl on admission. D-dimer wnl on admission -Will continue to monitor - discuss smoking cessation prior to discharge (5) Headache ICD Codes: R51 - Headache Status: Chronic Plan: Impression: Chronic headache multiple times a week lasting 1-4+ hrs. Not defined as unilateral or pulsatile; occasional visual changes but not with reported photophobia. Not obviously migrainous in etiology. In association with history of hypertension in EMR Head CT in ED wnl -Will attempt HTN control -Due to reported severity today, will attempt to treat with Diphenhydramine and Prochlorperazine -Will give Acetaminophen 650mg PRN (6) Vomiting ICD Codes: R11.10 - Vomiting, unspecified Status: Resolved Plan: Impression: Recent vomiting; patient without vomiting for several days but decreased oral intake due to fear of vomiting. No postprandial pain or history of GI disease -Will give Zofran PRN -Will give heart healthy diet; if still present or decreased intake will plan to work-up further (7) Hyposomnia, insomnia or sleeplessness associated with anxiety ICD Codes: F51.05 - Insomnia due to other mental disorder; F41.9 - Anxiety disorder, unspecified Status: Chronic Plan: Impression: History of distant panic attack; no recent symptoms. 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, Trazodone, Zolpidem per EMR review -Discussed with patient that will plan to re-initiate Trazodone prior to discharge she said she slept well last night and feels better this am (8) DVT PPX Status: Acute Plan: -Will defer chemical PPX since young with low Caprini score -Will give mechanical PPX (9) Fluids, electrolytes, and nutrition Status: Acute Plan: Fluids: will defer at this time and attempt oral intake Electrolytes: Mild hypokalemia (K 3.4); will replete Nutrition: Heart healthy diet Problem Qualifiers (1) Headache: Qualified Codes: G44.229 - Chronic tension-type headache, not intractable (2) Vomiting: Qualified Codes: R11.2 - Nausea with vomiting, unspecified Susan Fong MD Jun 22, 2017 10:10
--- NOTE | 2017-06-22 13:04 | HHI.DCPOC ---
Discharge Care Plan Diagnosis: (1) Hypertensive urgency (2) Chest pain, rule out acute myocardial infarction Goals to Promote Your Health * To prevent worsening of your condition and complications * To maintain your health at the optimal level Directions to Meet Your Goals Take your medications as prescribed Follow your dietary instruction Follow activity as directed Keep your appointments as scheduled Take your immunizations and boosters as scheduled If your symptoms worsen call your PCP, if no PCP go to Urgent Care Center or Emergency Room Smoking is Dangerous to Your Health. Avoid second hand smoke Call the 24-hour hour crisis hotline for domestic abuse at Xavi Xiao MD, R3 Jun 22, 2017 13:04
[2017-06-22] MEDS ORDERED: TRAZ50TA12 PO (13:08)
[2017-06-22] MEDS ORDERED: METO25TA3 PO (13:08)
[2017-06-22] MEDS ORDERED: HYDR25TA5 PO (13:08)
[2017-06-22 16:06] LABS: HEMOGLOBIN A1a 0.9 %; HEMOGLOBIN A1b 0.6 %; HEMOGLOBIN F 0.7 %; HEMOGLOBIN LA1C 1.8 %; HEMOGLOBIN P3 3.3 %
--- NOTE | 2017-06-22 18:45 | ECHRPT ---
Indication: lvh CONCLUSIONS The left ventricular systolic function is low normal with an estimated ejection fraction in the rang e of 50- 55%. Normal left ventricular size. Mild mitral valve regurgitation. There is mild tricuspid valve regurgitation. BP: / HR: Rhythm: MEASUREMENTS (Male / Female) Normal Values Technical Quality:Good 2D ECHO LV Diastolic Diameter PLAX 4.0 cm 4.2 - 5.9 / 3.9 - 5.3 cm LV Systolic Diameter PLAX 3.2 cm IVS Diastolic Thickness 1.3 cm 0.6 - 1.0 / 0.6 - 0.9 cm LVPW Diastolic Thickness 1.0 cm 0.6 - 1.0 / 0.6 - 0.9 cm LV Relative Wall Thickness 0.6 RV Internal Dim ED PLAX 2.2 cm M-MODE Aortic Root Diameter MM 2.6 cm LA Systolic Diameter MM 1.6 cm LA Ao Ratio MM 0.6 AV Cusp Separation MM 1.6 cm DOPPLER Mitral E Point Velocity 52.8 cm/s Mitral A Point Velocity 55.8 cm/s Mitral E to A Ratio 0.9 LV E' Lateral Velocity 7.0 cm/s Mitral E to LV E' Lateral Ratio 7.5 LV E' Septal Velocity 6.9 cm/s Mitral E to LV E' Septal Ratio 7.6 FINDINGS LEFT VENTRICLE The left ventricular systolic function is low normal with an estimated ejection fraction in the rang e of 50- 55%. Normal left ventricular size. RIGHT VENTRICLE Normal right ventricular size and systolic function. LEFT ATRIUM The left atrial size is normal. RIGHT ATRIUM The right atrial size is normal. AORTA The aortic root and proximal ascending aorta are normal in size on limited imaging. MITRAL VALVE Mild mitral valve regurgitation. Structurally normal mitral valve. AORTIC VALVE No aortic valve stenosis or regurgitation. Trileaflet aortic valve. TRICUSPID VALVE Structurally normal tricuspid valve. There is mild tricuspid valve regurgitation. PULMONARY VALVE No pulmonary valve regurgitation or stenosis. VESSELS The inferior vena cava is normal in size. PERICARDIUM No pericardial effusion. Mil Walker MD (Electronically Signed) Final Date:22 June 2017 18:44
--- NOTE | 2017-06-22 18:57 | EKG ---
Date Performed: 06/21/2017 Time Performed: 13:46:33 PTAGE: 42 years EKG: Sinus rhythm VOLTAGE CRITERIA FOR LVH ABNORMAL ECG Compared to prior tracing no significant change PREVIOUS TRACING : 06/21/2017 06.28 DOCTOR: Kusum Wadsworth Interpretating Date/Time 06/22/2017 18:57:09
--- NOTE | 2017-06-22 18:58 | EKG ---
Date Performed: 06/21/2017 Time Performed: 22:16:16 PTAGE: 42 years EKG: Sinus rhythm MODERATE VOLTAGE CRITERIA FOR LVH, CONSIDER NORMAL VARIANT BORDERLINE ECG Compared to prior tracing no significant change PREVIOUS TRACING : 06/21/2017 13.46 DOCTOR: Kusum Wadsworth Interpretating Date/Time 06/22/2017 18:57:19
[2017-06-22] MEDS ORDERED: traZODone HCL 50 MG TAB PO SCH (21:00)
[2017-06-30] MEDS ORDERED: AMBI5TAB PO (11:16)
[2017-06-30] MEDS ORDERED: HYDR25TA5 PO (11:16)
== END 2017-06-22 16:10 | disposition home or self-care (01) ==
LOC: NEPE 06:00 → NEDA 07:37 → NEPFCDU 12:16
PROVIDERS: ADMIT Family Medicine; ATTEND Family Medicine
DX: I16.0 Hypertensive urgency (principal); R07.9 Chest pain, unspecified; I51.7 Cardiomegaly; R94.31 Abnormal electrocardiogram [ECG] [EKG]; E87.6 Hypokalemia; R06.02 Shortness of breath; R51 Headache; M54.9 Dorsalgia, unspecified; R11.10 Vomiting, unspecified; F41.0 Panic disorder [episodic paroxysmal anxiety]; G47.00 Insomnia, unspecified; F17.210 Nicotine dependence, cigarettes, uncomplicated; R79.89 Other specified abnormal findings of blood chemistry
CPT/HCPCS: 70450; 71010; 80048; 80053; 80061; 82550; 82552; 83036; 83690; 83735; 83880; 84484; 84703; 85025; 85379; 85610; 85730; 93005; 93306; 96361; 96374; 96375; 99285; G0378; J0780; J1200; J2270; J2405; J7040

== ENCOUNTER 2017-10-12 05:07 | Emergency (ER) | payer OTHER, MEDICAID ==
[~2017-10-12] VITALS: Ht 157.5 cm; Wt 65.0 kg
[~2017-10-12 05:07] MED LIST changes: +HYDR25TA5 PO; +MELA1TAB18 PO; +METO25TA3 PO; -ZOFR4TAB3 SL
[2017-10-12 05:10] VITALS: BP 187/116; PULSE 91; RESP 16; TEMP 98.5; O2SAT 100
--- NOTE | 2017-10-12 05:36 | PD ---
HPI Chief Complaint: Cardiac Complaint Time Seen by Provider: 05:20 Travel History International Travel<30 days: No Contact w/Intl Traveler<30days: No Traveled to known affect area: No History of Present Illness HPI The patient is a 42 year old female who presents to the [facility] emergency department with a history of not feeling well since last night at 6 PM. She has had blurry vision, headache over her temples. She has been taking her metoprolol as prescribed. She was on HCTZ in the past however this was discontinued. She was not given any reason why the prescription was discontinued. She stopped taking it at the end of August. She has had a tightness in her chest with difficulty taking a deep breath since last night. She has had a clear nasal discharge. She has had a dry cough and a scratchy throat. She had nausea with dry heaving this morning. Review of systems, the patient denies having any recent fevers, neck pain or stiffness, abdominal pain , diarrhea, urinary symptoms, or neurologic symptoms. LMP: 09/16/2017 Her primary care doctor is Dr. Sheets. [facility] Past Medical History Narrative Medical The patient's past medical history is significant for hypertension. Heart Rhythm Problems: No Cardiac Catheterization: No Cardiovascular Problems: No High Cholesterol: No Congestive Heart Failure: No Diabetes: No Diminished Hearing: No Immunizations Current: Yes ?: Unknown LMP: 09/16/17 Past Surgical History Narrative Surgical The patient's past surgical history is significant for BTL. Coronary Artery Bypass Graft: No Social History Alcohol Use: No Tobacco Use: Yes (3-5 cig a day x 4 yrs) Substance Use: No (DENIES) Allergies-Medications (Allergen,Severity, Reaction): Coded Allergies: No Known Allergies (Verified Allergy, Unknown, 10/12/17) Reported Meds & Prescriptions Reported Meds & Active Scripts Active Hydrochlorothiazide 25 Mg Tab 25 Mg PO DAILY Metoprolol Tartrate 25 Mg Tab 12.5 Mg PO Q12HR Review of Systems Except as stated in HPI: all other systems reviewed are Neg General / Constitutional: No: Fever Eyes: No: Visual changes HENT: No: Headaches Cardiovascular: Positive: Chest Pain or Discomfort (Chest tightness) Respiratory: Positive: Cough, Shortness of Breath Gastrointestinal: Positive: Nausea, Vomiting (dry heave x1.), No: Abdominal Pain Genitourinary: No: Dysuria Musculoskeletal: No: Pain Skin: No Rash Neurologic: No: Weakness Psychiatric: No: Depression Endocrine: No: Polydipsia Hematologic/Lymphatic: No: Easy Bruising Physical Exam Narrative General: The patient is a well-developed well-nourished female in no acute distress Head and Neck exam: Head is normocephalic atraumatic. Eyes: EOMI, pupils are equal round and reactive to light. The patient has tearing noted of bilateral eyes on exam. No conjunctival injection Nose: Midline septum with blue and boggy terminates and a clear nasal discharge Mouth: Dentition unremarkable. Moist mucus membranes. Posterior oropharynx is not erythematous. No tonsillar hypertrophy. Uvula midline. Airway patent. Neck: No palpable lymphadenopathy. No nuchal rigidity. No thyromegaly. Cardiovascular: Regular rate and rhythm without murmurs, gallops, or rubs. Lungs: Clear to auscultation bilaterally. No wheezes, rhonchi, or rales. Abdomen: Soft, without tenderness to palpation in all 4 quadrants of the abdomen. No guarding, rebound, or rigidity. Normal bowel sounds are audible. No tenderness on palpation of McBurney's point. Negative Curry sign. Extremities: No clubbing, cyanosis, or edema. 2+ pulses in all 4 extremities. No calf tenderness on palpation. Back: No spinous process tenderness to palpation. No costovertebral angle tenderness to palpation. Neurologic Exam: Cranial nerves 2-12 were intact on exam. Strength is 5/5 in all 4 extremities. No sensory deficits noted. Skin Exam: No rash noted. Intact skin that is warm and dry. Data Data Last Documented VS Vital Signs Date Time Temp Pulse Resp B/P (MAP) Pulse Ox O2 Delivery O2 Flow Rate FiO2 10/12/17 06:09 77 20 100 Room Air 10/12/17 05:10 98.5 187/116 (139) Orders Orders Electrocardiogram (10/12/17 05:34) Complete Blood Count With Diff (10/12/17 05:34) Comprehensive Metabolic Panel (10/12/17 05:34) Creatine Kinase (Cpk) (10/12/17 05:34) Ckmb (Isoenzyme) Profile (10/12/17 05:34) Troponin I (10/12/17 05:34) B-Type Natriuretic Peptide (10/12/17 05:34) Prothrombin Time / Inr (Pt) (10/12/17 05:34) Act Partial Throm Time (Ptt) (10/12/17 05:34) Lipase (10/12/17 05:34) Urinalysis - C+S If Indicated (10/12/17 05:34) Magnesium (Mg) (10/12/17 05:34) Thyroid Stimulating Hormone (10/12/17 05:34) Chest, Single Ap (10/12/17 05:34) Ct Brain W/O Iv Contrast(Rout) (10/12/17 05:34) Iv Access Insert/Monitor (10/12/17 05:34) Ecg Monitoring (10/12/17 05:34) Oximetry (10/12/17 05:34) Ed Urine Pregnancytest Poc (10/12/17 05:34) CKMB (10/12/17 06:00) CKMB% (10/12/17 06:00) Labs Laboratory Tests Test 10/12/17 06:00 White Blood Count 6.1 TH/MM3 Red Blood Count 3.67 MIL/MM3 Hemoglobin 10.6 GM/DL Hematocrit 31.9 % Mean Corpuscular Volume 87.0 FL Mean Corpuscular Hemoglobin 28.9 PG Mean Corpuscular Hemoglobin Concent 33.2 % Red Cell Distribution Width 14.0 % Platelet Count 303 TH/MM3 Mean Platelet Volume 7.7 FL Neutrophils (%) (Auto) 47.6 % Lymphocytes (%) (Auto) 39.8 % Monocytes (%) (Auto) 9.8 % Eosinophils (%) (Auto) 2.0 % Basophils (%) (Auto) 0.8 % Neutrophils # (Auto) 2.9 TH/MM3 Lymphocytes # (Auto) 2.4 TH/MM3 Monocytes # (Auto) 0.6 TH/MM3 Eosinophils # (Auto) 0.1 TH/MM3 Basophils # (Auto) 0.0 TH/MM3 CBC Comment DIFF FINAL Differential Comment Prothrombin Time 10.2 SEC Prothromb Time International Ratio 1.0 RATIO Activated Partial Thromboplast Time 24.7 SEC Urine Color YELLOW Urine Turbidity HAZY Urine pH 6.0 Urine Specific [place] 1.028 Urine Protein TRACE mg/dL Urine Glucose (UA) NEG mg/dL Urine Ketones 10 mg/dL Urine Occult Blood TRACE Urine Nitrite NEG Urine Bilirubin NEG Urine Urobilinogen 2.0 MG/DL Urine Leukocyte Esterase NEG Urine RBC 2 /hpf Urine WBC 2 /hpf Urine Squamous Epithelial Cells 14 /hpf Urine Bacteria RARE /hpf Urine Mucus FEW /lpf Microscopic Urinalysis Comment CULT NOT INDICATED Blood Urea Nitrogen 15 MG/DL Creatinine 0.79 MG/DL Random Glucose 85 MG/DL Total Protein 7.4 GM/DL Albumin 3.6 GM/DL Calcium Level 8.2 MG/DL Magnesium Level 2.0 MG/DL Alkaline Phosphatase 61 U/L Aspartate Amino Transf (AST/SGOT) 19 U/L Alanine Aminotransferase (ALT/SGPT) 17 U/L Total Bilirubin 0.4 MG/DL Sodium Level 141 MEQ/L Potassium Level 3.3 MEQ/L Chloride Level 109 MEQ/L Carbon Dioxide Level 26.0 MEQ/L Anion Gap 6 MEQ/L Estimat Glomerular Filtration Rate 98 ML/MIN Total Creatine Kinase 123 U/L Troponin I LESS THAN 0.02 NG/ML B-Type Natriuretic Peptide 87 PG/ML Lipase 222 U/L Thyroid Stimulating Hormone 3rd Gen 3.050 uIU/ML MDM Medical Decision Making Medical Screen Exam Complete: Yes Emergency Medical Condition: Yes Medical Record Reviewed: Yes Interpretation(s) Last Impressions Chest X-Ray 10/12/17 0534 Signed Impressions: Service Date/Time: Thursday, October 12, 2017 06:11 - CONCLUSION: 1. No acute cardiopulmonary disease. Jaylen Chandra MD Differential Diagnosis Allergic rhinitis, versus chronic sinusitis, versus hypertension induced headache, versus intracranial hemorrhage, versus acute coronary syndrome Narrative Course During the course of the patient's emergency department visit, the patient's history, examination, and differential diagnosis were reviewed with the patient. The patient was placed on a monitoring specialist with oximetry and frequent blood pressure monitoring. The patient had IV access obtained and blood work sent for analysis. The patient was initially provided clonidine 0.1 mg p.o. 1, Tylenol 650 p.o. 1. The patient's laboratory studies were reviewed and remarkable for a white count of 6.1, hemoglobin 10.6, platelets 303 with monocytes 9.9, CMP is remarkable for potassium of 3.3, chloride 109, calcium 8.2, cardiac enzymes within normal limits, lipase 222, TSH 3.05, BNP is 87, PT 10.2, PTT 24.7, urinalysis shows 10 ketones trace occult blood, rare bacteria, culture not indicated. Radiology studies were reviewed and remarkable for a chest x-ray that shows no acute cardiopulmonary disease. CT scan of the brain shows no acute intracranial abnormality. The patient's repeat blood pressure has gone down to 164/106. I suspect that the patient's elevated blood pressure is related to discontinuation of her hydrochlorothiazide. As the patient has mild hypokalemia the patient will be started on hydrochlorothiazide in combination with lisinopril. The patient was given a p.o. supplement of potassium here today. I also suspect that the patient's eye tearing, nasal congestion, cough or related to allergic rhinitis. The patient will be started on fluticasone. The patient is resting comfortably and feels better, is alert and in no distress. The patient's results and examination findings were discussed with the patient. The repeat examination is unremarkable and benign. The history, exam, diagnostic testing, and current condition do not suggest any significant pathology to warrant further testing, continued ED treatment, admission, or surgical evaluation at this point. The vital signs have been stable. The patient does not have uncontrollable pain, intractable vomiting, or other significant symptoms. The patient's condition is stable and appropriate for discharge. The patient will pursue further outpatient evaluation with a primary care physician or other designated or consulting physician as indicated in the discharge instructions. The patient expressed understanding and was agreeable with this plan. Diagnosis Primary Impression: Uncontrolled hypertension Additional Impression: Allergic rhinitis Qualified Codes: J30.2 - Other seasonal allergic rhinitis Referrals: Primary Care Physician 2 days Patient Instructions: Allergic Rhinitis (ED), General Instructions, Hypertension (ED) Med/Other Pt SpecificInfo: Prescription(s) given Scripts Fluticasone Nasal [place] (Fluticasone Nasal [place]) 50 Mcg/Act Naspr 50 MCG EACH NARE BID for Allergy Management, #1 BOTTLE 0 Refills 50 mcg/spray Prov: Fany Walker MD 10/12/17 Lisinopril-Hctz (Lisinopril-Hctz) 10-12.5 Mg Tab 1 TAB PO DAILY for Blood Pressure Management, #30 TAB 0 Refills Prov: Fany Walker MD 10/12/17 Disposition: 01 DISCHARGE HOME Condition: Stable Fany Walker MD Oct 12, 2017 05:36
[2017-10-12 06:12] LABS: AUTOMATED NEUTROPHIL # 2.9 TH/MM3 (1.8-7.7); BASOPHIL % 0.8 % (0.0-2.0); EOSINOPHIL # 0.1 TH/MM3 (0-0.4); HEMATOCRIT 31.9 % (35.0-46.0); HEMOGLOBIN 10.6 GM/DL (11.6-15.3); LYMPH % 39.8 % (9.0-44.0); LYMPHOCYTE # 2.4 TH/MM3 (1.0-4.8); MEAN CORPUSCULAR HEMOGLOBIN 28.9 PG (27.0-34.0); MEAN CORPUSCULAR HGB CONC 33.2 % (32.0-36.0); MEAN PLATELET VOLUME 7.7 FL (7.0-11.0); MONO % 9.8 % (0.0-8.0); MONOCYTE # 0.6 TH/MM3 (0-0.9); NEUT % 47.6 % (16.0-70.0); PLATELET COUNT 303 TH/MM3 (150-450); RED BLOOD COUNT 3.67 MIL/MM3 (4.00-5.30); WHITE BLOOD COUNT 6.1 TH/MM3 (4.0-11.0)
--- NOTE | 2017-10-12 06:19 | RADRPT ---
EXAM DATE/TIME: 10/12/2017 06:11 [facility] COMPARISON: CHEST SINGLE AP, June 21, 2017, 6:21. INDICATIONS : Chest pain. MEDICAL HISTORY : None. SURGICAL HISTORY : Tubal ligation. ENCOUNTER: Initial ACUITY: 1 day PAIN SCORE: 5/10 LOCATION: Bilateral chest FINDINGS: A single view of the chest demonstrates the lungs to be symmetrically aerated without evidence of mas s, infiltrate or effusion. The cardiomediastinal contours are unremarkable. Osseous structures are intact. CONCLUSION: 1. No acute cardiopulmonary disease. Jaylen Chandra MD on October 12, 2017 at 6:17 Board Certified Radiologist. This report was verified electronically.
[2017-10-12 06:22] LABS: BACTERIA, URINE RARE /hpf; BILIRUBIN, URINE NEG (NEG); BLOOD, URINE TRACE (NEG); GLUCOSE,URINE NEG (NEG); KETONE, URINE 10 mg/dL (NEG); MUCUS URINE FEW /lpf (OCC); NITRITE,URINE NEG (NEG); SQUAMOUS EPITHELIAL CELL URINE 14 /hpf (0-5); URINE COLOR YELLOW (YELLW/STRAW); URINE LEUKOCYTE ESTERASE NEG (NEG)
[2017-10-12 06:25] LABS: PROTHROMBIN TIME - PATIENT 10.2 SEC (9.8-11.6)
--- NOTE | 2017-10-12 06:40 | RADRPT ---
EXAM DATE/TIME: 10/12/2017 06:34 [facility] COMPARISON: CT BRAIN W/O CONTRAST, June 21, 2017, 9:11. INDICATIONS : Cephalgia. RADIATION DOSE: 35.34 CTDIvol (mGy) MEDICAL HISTORY : Hypertension. SURGICAL HISTORY : Tubal ligation. ENCOUNTER: Initial ACUITY: 1 day PAIN SCALE: 5/10 LOCATION: cranial TECHNIQUE: Multiple contiguous axial images were obtained of the head. Using automated exposure control and adj ustment of the mA and/or kV according to patient size, radiation dose was kept as low as reasonably a chievable to obtain optimal diagnostic quality images. DICOM format image data is available electro nically for review and comparison. FINDINGS: CEREBRUM: The ventricles are normal for age. No evidence of midline shift, mass lesion, hemorrhage or acute in farction. No extra-axial fluid collections are seen. POSTERIOR FOSSA: The cerebellum and brainstem are intact. The 4th ventricle is midline. The cerebellopontine angle i s unremarkable. EXTRACRANIAL: The visualized portion of the orbits is intact. SKULL: The calvaria is intact. No evidence of skull fracture. CONCLUSION: 1. No acute intracranial abnormality. Jaylen Chandra MD on October 12, 2017 at 6:39 Board Certified Radiologist. This report was verified electronically.
[2017-10-12 06:42] LABS: ALBUMIN 3.6 GM/DL (3.4-5.0); ALT (GPT) 17 U/L (10-53); AST (GOT) 19 U/L (15-37); BLOOD UREA NITROGEN 15 MG/DL (7-18); CALCIUM 8.2 MG/DL (8.5-10.1); CHLORIDE 109 MEQ/L (98-107); CREATININE 0.79 MG/DL (0.50-1.00); GLOMERULAR FILTRATION RATE 98 ML/MIN (>89); GLUCOSE,RANDOM 85 MG/DL (74-106); SODIUM (NA) 141 MEQ/L (136-145)
[2017-10-12 06:52] LABS: ALKALINE PHOSPHATASE 61 U/L (45-117); TOTAL BILIRUBIN ADULT 0.4 MG/DL (0.2-1.0); TOTAL PROTEIN 7.4 GM/DL (6.4-8.2); TROPONIN I LESS THAN 0.02 NG/ML (0.02-0.05)
[2017-10-12 07:00] VITALS: BP 164/106; PULSE 80; RESP 16; O2SAT 100
[2017-10-12] MEDS ORDERED: LISI10TA PO (07:06)
[2017-10-12] MEDS ORDERED: FLUT50SP EACH NARE (07:06)
[2017-10-12] MEDS ORDERED: ACETAMINOPHEN 325 MG TAB PO ONE (07:15)
[2017-10-12] MEDS ORDERED: POTASSIUM CHLORIDE 20 MEQ CONTROLLED RELEASE TAB PO ONE (07:15)
[2017-10-12] MEDS ORDERED: cloNIDine HCL 0.1 MG TAB PO ONE (07:15)
[2017-10-12 07:53] VITALS: BP 161/98; PULSE 85; RESP 16; O2SAT 100
[2017-10-12 08:57] VITALS: BP 158/96
--- NOTE | 2017-10-12 22:00 | EKG ---
Date Performed: 10/12/2017 Time Performed: 06:44:02 PTAGE: 42 years EKG: Sinus rhythm NORMAL ECG PREVIOUS TRACING : 06/21/2017 22.16 Since the prior tracing, there has been no significant hughes DOCTOR: Chalo Neville Interpretating Date/Time 10/12/2017 21:59:15
== END 2017-10-12 08:58 | disposition home or self-care (01) ==
LOC: NEPE 05:07
DX: I10 Essential (primary) hypertension (principal); J30.9 Allergic rhinitis, unspecified; R07.89 Other chest pain; R05 Cough; R11.2 Nausea with vomiting, unspecified; E87.6 Hypokalemia; F17.210 Nicotine dependence, cigarettes, uncomplicated; Z79.899 Other long term (current) drug therapy
CPT/HCPCS: 70450; 71045; 80053; 81001; 82550; 82552; 83690; 83735; 83880; 84443; 84484; 84703; 85025; 85610; 85730; 93005; 99285

== ENCOUNTER 2017-12-23 11:05 | Emergency (ER) | payer MEDICAID, OTHER ==
[~2017-12-23] VITALS: Ht 152.4 cm; Wt 50.0 kg
[~2017-12-23 11:05] MED LIST changes: +FLUT50SP EACH NARE; +LISI10TA PO; -MELA1TAB18 PO
[2017-12-23 11:21] VITALS: BP 169/100; PULSE 82; RESP 15; TEMP 98.9; O2SAT 100
[2017-12-23] MEDS ORDERED: BACT800T5 PO (12:15)
[2017-12-23] MEDS ORDERED: NAPROXEN 500 MG TAB PO ONE (12:15)
[2017-12-23] MEDS ORDERED: NAPR500T2 PO (12:15)
--- NOTE | 2017-12-23 12:15 | PD ---
HPI Chief Complaint: Lump, Cyst, Hernia Time Seen by Provider: 11:55 Travel History International Travel<30 days: No Contact w/Intl Traveler<30days: No Traveled to known affect area: No History of Present Illness HPI 42-year-old woman presents emerged department painful tender swelling in the bottom of her right rod. She looks otherwise well. She has had it for several years but over the past week or 2 has been more painful red and swollen. No drainage. She works nights. No fevers or chills. Otherwise well. Pain is been moderate, constant, worsening. No [id number] medications or other aggravating or alleviating factors. History Past Medical History Medical History: Denies Significant Hx LMP: 12/10/17 : 3 Para: 3 Social History Alcohol Use: Yes (6 pk per week) Tobacco Use: Yes (5 per day) Allergies-Medications (Allergen,Severity, Reaction): Coded Allergies: No Known Allergies (Verified Allergy, Unknown, 10/12/17) Reported Meds & Prescriptions Reported Meds & Active Scripts Active Fluticasone Nasal [place] 50 Mcg/Act Naspr 50 Mcg EACH NARE BID 50 mcg/spray Lisinopril-Hctz 10-12.5 Mg Tab 1 Tab PO DAILY Hydrochlorothiazide 25 Mg Tab 25 Mg PO DAILY Metoprolol Tartrate 25 Mg Tab 12.5 Mg PO Q12HR Review of Systems Except as stated in HPI: all other systems reviewed are Neg Physical Exam Narrative GENERAL: Well-appearing 6-year-old woman, no acute distress. SKIN: Warm and dry. CARDIOVASCULAR: Warm and well perfused. RESPIRATORY: Normal rate and effort. HEENT: There is a painful area of redness and swelling right underneath the right side of the chin. About 1-2 cm in size. No drainage. NEUROLOGICAL: Awake and alert. No gross deficits. Data Data Last Documented VS Vital Signs Date Time Temp Pulse Resp B/P (MAP) Pulse Ox O2 Delivery O2 Flow Rate FiO2 12/23/17 11:21 98.9 82 15 169/100 (123) 100 Orders Orders Naproxen (Naprosyn) (12/23/17 12:15) MDM Medical Decision Making Medical Screen Exam Complete: Yes Emergency Medical Condition: Yes Differential Diagnosis Infected sebaceous cyst, abscess, malignancy, other Narrative Course Medical decision making 42-year-old woman with an infected sebaceous cyst. The heads visible on the exam, does not appear to be infected lymph node. On I&D is consistent with an infected sebaceous cyst. Procedures Procedure Narrative INCISION AND DRAINAGE OF ABSCESS: The area was prepped and was sterilely draped. A subcutaneous wheal of % Xylocaine 1 with a total number 2 mL was used to anesthetize the area. The area was properly anesthetized. A number 11 scalpel was used to make a 0.5-cm incision across the area of the abscess. Patient tolerated well. Diagnosis Primary Impression: Infected sebaceous cyst Patient Instructions: Epidermal Inclusion Cysts (ED), General Instructions Additional Instructions: Take antibiotics as prescribed. Use naproxen as needed for pain. Follow-up with your primary doctor for referral to a surgeon for removal of sebaceous cyst once inflammation and infection is resolved. Return to the emergency department for any worsening pain redness swelling drainage fevers or any other new or worsening symptoms. Med/Other Pt SpecificInfo: Prescription(s) given Scripts Sulfamethoxazole-Trimethoprim (Bactrim DS) 800-160 Mg Tab 1 TAB PO BID for Infection, #14 TAB 0 Refills Prov: Qamar Bush MD 12/23/17 Naproxen (Naproxen) 500 Mg Tab 500 MG PO BID, #20 TAB 0 Refills Prov: Qamar Bush MD 12/23/17 Disposition: 01 DISCHARGE HOME Condition: Stable Qamar Bush MD December 23, 2017 12:15
== END 2017-12-23 12:40 | disposition home or self-care (01) ==
LOC: NEPK 11:05
DX: L72.3 Sebaceous cyst (principal); F17.200 Nicotine dependence, unspecified, uncomplicated; Z79.899 Other long term (current) drug therapy
CPT/HCPCS: 10060

== ENCOUNTER 2018-03-01 02:05 | Observation (INO) ==
[2018-03-01] MEDS ORDERED: Ketorolac Inj 30 MG/ML (IVP) Vial IV.PUSH ONE (04:36)
[2018-03-01] MEDS ORDERED: Sodium Chlor 0.9% Inj 500 ML IV.SIG ONE (04:37)
--- NOTE | 2018-03-01 04:40 | ED ---
HPI General Chief Complaint: Chest Pain Stated Complaint: chest pain, headache Time Seen by Provider: 03/01/18 04:32 History of Present Illness HPI narrative: 42-year-old female with chest pain radiating to the left neck and left upper extremity since yesterday at 5 PM. Pain has been persistent 8/ 10 in intensity. Patient does have history of hypertension tobacco use and prior tubal ligation. Patient denies . Patient denies known history of cardiac disease dyslipidemia diabetes or family history of premature onset heart disease or clotting disorder. Patient rates her pain 8/10 intensity and is unable to identify exacerbating or alleviating factors. Patient took acetaminophen without symptom relief and did not take ibuprofen. No sweats no shortness of breath no nausea vomiting. Complete Quality Measures for STEMI Alert Patients Related Data Home Medications Medication Instructions Recorded Confirmed metoprolol ta-hydrochlorothiaz 1 tab PO DAILY 03/01/18 03/01/18 Previous Rx's Medication Instructions Recorded amlodipine [Norvasc] 5 mg PO DAILY tab 03/01/18 Allergies Allergy/AdvReac Type Severity Reaction Status Date / Time No Known Allergies Allergy Verified 03/01/18 02:30 Review of Systems Except as stated in HPI: all other systems reviewed are negative [facility] Medical History Medical History Hypertension (Acute) Surgical History Surgical History Hx of tubal ligation (Acute) Social History Social History Substance History: No History of Abuse Smoking Status: Former smoker How Often Do You Have a Drink Containing Alcohol: Monthly or less Recent Travel in [facility] within the Last 8 Weeks: No Recent Out of Country Travel within the Last 8 Weeks: No Immunization History Tetanus Immunization: <5 Years Hx Influenza Vaccine This Season: Yes Exam Narrative Exam Narrative: GENERAL: Well-nourished, well-developed patient. SKIN: Focused skin assessment warm/dry. HEAD: Normocephalic. EYES: No scleral icterus. No injection or drainage. NECK: Supple, trachea midline. No JVD or lymphadenopathy. CARDIOVASCULAR: Regular rate and rhythm without murmurs, gallops, or rubs. RESPIRATORY: Breath sounds equal bilaterally. No accessory muscle use. GASTROINTESTINAL: Abdomen soft, non-tender, nondistended. MUSCULOSKELETAL: No cyanosis, or edema. BACK: Nontender without obvious deformity. No CVA tenderness. Course Initial Documented Vital Signs Temperature 98.2 F 03/01/18 02:26 Pulse Rate 64 03/01/18 02:26 Respiratory Rate 20 03/01/18 02:26 Blood Pressure 166/96 H 03/01/18 02:26 Pulse Oximetry 100 03/01/18 02:26 Last Documented Vital Signs Temperature 98.0 F 03/01/18 09:00 Pulse Rate 65 03/01/18 09:00 Respiratory Rate 18 03/01/18 09:00 Blood Pressure 157/90 H 03/01/18 09:00 Pulse Oximetry 99 03/01/18 09:00 Medical Decision Making MDM Narrative Medical decision making narrative: Patient with chest pain radiating to left neck and shoulder no shortness of breath no sweats no nausea vomiting. No abdominal pain. No injury. Patient placed on groundwater monitoring technician with continuous pulse oximetry IV access obtained specimens collections of resulting EKG is sinus rhythm with no acute ST elevation injury pattern or ectopy patient does meet LVH by voltage criteria with history of tobaccoism. Differential Diagnosis Differential Diagnosis: Chest pain, ACS, [place], atypical chest pain, uncontrolled hypertension, section, PE Medical Records Medical records reviewed: Yes I reviewed the patient's medical records. Lab Data Result diagrams: 03/01/18 04:50 03/01/18 04:50 Lab Results 03/01/18 03/01/18 03/01/18 Range/Units 04:50 04:50 04:50 WBC 5.0 (4.0-11.0) th/mm3 RBC 4.18 (4.00-5.30) mil/mm3 Hgb 11.7 (11.6-15.3) gm/dL Hct 36.0 (35.0-46.0) % MCV 86.0 (80.0-100.0) fL MCH 28.1 (27.0-34.0) pg MCHC 32.6 (32.0-36.0) % RDW 15.3 (11.6-17.2) % Plt Count 316 (150-450) th/mm3 MPV 7.9 (7.0-11.0) fL Neut % (Auto) 39.2 (16.0-70.0) % Lymph % (Auto) 48.1 H (9.0-44.0) % [place] % (Auto) 7.6 (0.0-8.0) % Eos % (Auto) 3.7 (0.0-4.0) % Baso % (Auto) 1.4 (0.0-2.0) % Neut # (Auto) 2.0 (1.8-7.7) th/mm3 Lymph # (Auto) 2.4 (1.0-4.8) th/mm3 [place] # (Auto) 0.4 (0.0-0.9) th/mm3 Eos # (Auto) 0.2 (0.0-0.4) th/mm3 Baso # (Auto) 0.1 (0.0-0.2) th/mm3 WBC Differential . Differential Comment Auto diff final PT 10.0 (9.8-11.6) sec INR 1.0 Ratio APTT 24.9 (24.3-30.1) sec D-Dimer Quant (PE/DVT) 0.29 (0.00-0.50) mg/L FEU Sodium 138 (136-145) meq/L Potassium 3.1 L (3.5-5.1) meq/L Chloride 102 (98-107) meq/L Carbon Dioxide 25.3 (21.0-32.0) meq/L Anion Gap 11 (5-15) meq/L BUN 12 (7-18) mg/dL Creatinine 0.87 (0.50-1.00) mg/dL Estimated GFR 87 L (>89) mL/min Random Glucose 80 (74-106) mg/dL Calcium 9.1 (8.5-10.1) mg/dL Magnesium 2.5 (1.5-2.5) mg/dL Total Creatine Kinase 130 (26-192) U/L CK-MB (CK-2) Less than 0.5 L (0.5-3.6) ng/mL Troponin I Less than 0.02 L (0.02-0.05) ng/mL 03/01/18 Range/Units 07:50 WBC (4.0-11.0) th/mm3 RBC (4.00-5.30) mil/mm3 Hgb (11.6-15.3) gm/dL Hct (35.0-46.0) % MCV (80.0-100.0) fL MCH (27.0-34.0) pg MCHC (32.0-36.0) % RDW (11.6-17.2) % Plt Count (150-450) th/mm3 MPV (7.0-11.0) fL Neut % (Auto) (16.0-70.0) % Lymph % (Auto) (9.0-44.0) % [place] % (Auto) (0.0-8.0) % Eos % (Auto) (0.0-4.0) % Baso % (Auto) (0.0-2.0) % Neut # (Auto) (1.8-7.7) th/mm3 Lymph # (Auto) (1.0-4.8) th/mm3 [place] # (Auto) (0.0-0.9) th/mm3 Eos # (Auto) (0.0-0.4) th/mm3 Baso # (Auto) (0.0-0.2) th/mm3 WBC Differential Differential Comment PT (9.8-11.6) sec INR Ratio APTT (24.3-30.1) sec D-Dimer Quant (PE/DVT) (0.00-0.50) mg/L FEU Sodium (136-145) meq/L Potassium (3.5-5.1) meq/L Chloride (98-107) meq/L Carbon Dioxide (21.0-32.0) meq/L Anion Gap (5-15) meq/L BUN (7-18) mg/dL Creatinine (0.50-1.00) mg/dL Estimated GFR (>89) mL/min Random Glucose (74-106) mg/dL Calcium (8.5-10.1) mg/dL Magnesium (1.5-2.5) mg/dL Total Creatine Kinase 104 (26-192) U/L CK-MB (CK-2) (0.5-3.6) ng/mL Troponin I Less than 0.02 L (0.02-0.05) ng/mL Imaging Data Radiologist's impression: Chest X-Ray 03/01/18 04:36 CONCLUSION: No active disease. ECG Data EKG Prior to Arrival: No Attestation: I personally reviewed and interpreted this ECG as follows: Prior ECG tracings: available for review Interpretation: EKG normal sinus rhythm rate [address] elevation injury pattern or ectopy noted patient meets voltage criteria for LVH Discharge Plan Discharge Disposition Patient Disposition: 01 Discharge Home Discharge Condition Condition: Stable Discharge Order Discharge Orders: Discharge Order (Routine); Ordered 03/01/18 Ordered By: Gio Koehler Discharge Details Anticipated Discharge Date: 03/01/18 Diagnosis: Chest pain Physicians Team ED Provider: Deedee Stack Primary Care Provider: Ambar Bowers Attending Provider: Brian Abraham Discharge Interventions Interventions: ED Discharge Assessment Last Done: 03/01/18 19:37 Vital Signs Last Done: 03/01/18 04:01 Status ED Status: Left Department Discharge Information Discharge Date/Time: 03/01/18 19:38
[2018-03-01 04:59] LABS: Baso # (Auto) 0.1 th/mm3 (0.0-0.2); Baso % (Auto) 1.4 % (0.0-2.0); Eos # (Auto) 0.2 th/mm3 (0.0-0.4); Eos % (Auto) 3.7 % (0.0-4.0); Hemoglobin 11.7 gm/dL (11.6-15.3); Lymph # (Auto) 2.4 th/mm3 (1.0-4.8); Lymph % (Auto) 48.1 % (9.0-44.0); Mean Corpuscular HGB Conc 32.6 % (32.0-36.0); Mean Corpuscular Hemoglobin 28.1 pg (27.0-34.0); Mean Platelet Volume 7.9 fL (7.0-11.0); Mono # (Auto) 0.4 th/mm3 (0.0-0.9); Mono % (Auto) 7.6 % (0.0-8.0); Neut % (Auto) 39.2 % (16.0-70.0); Platelet Count 316 th/mm3 (150-450); Red Blood Count 4.18 mil/mm3 (4.00-5.30); Red Cell Distribution Width 15.3 % (11.6-17.2)
--- NOTE | 2018-03-01 05:05 | XR ---
EXAM DATE: 03/01/2018 5:00 AM EDT AGE/SEX: 42 years / Female INDICATIONS: . Chest pain. CLINICAL DATA: This is the patient's initial encounter. Patient reports that signs and symptoms have been present for 1 week and indicates a pain score of 3/10. MEDICAL/SURGICAL HISTORY: . Smoker. . Tubal ligation. [place] [facility] [place]. . FINDINGS: A single AP view of the chest demonstrates the lungs to be symmetrically aerated without evidence of mass, infiltrate or effusion. The cardiomediastinal contours are unremarkable. Osseous structures a re intact. CONCLUSION: No active disease. Electronically signed by: Ignacio Gan MD 03/01/2018 5:04 AM EDT
[2018-03-01 05:14] LABS: Activated Partial Thrombo Time 24.9 sec (24.3-30.1)
[2018-03-01 05:18] LABS: D-Dimer 0.29 mg/L FEU (0.00-0.50)
[2018-03-01 05:27] LABS: Anion Gap 11 meq/L (5-15); Blood Urea Nitrogen 12 mg/dL (7-18); Calcium 9.1 mg/dL (8.5-10.1); Carbon Dioxide 25.3 meq/L (21.0-32.0); Chloride 102 meq/L (98-107); Glomerular Filtration Rate 87 mL/min (>89); Glucose,Random 80 mg/dL (74-106); Magnesium 2.5 mg/dL (1.5-2.5); Potassium 3.1 meq/L (3.5-5.1); Sodium 138 meq/L (136-145)
[2018-03-01 05:32] LABS: Creatine Kinase 130 U/L (26-192)
[2018-03-01] MEDS ORDERED: Morphine Inj 4 MG/ML Vial IV.PUSH PRN (06:39)
[2018-03-01] MEDS ORDERED: Acetaminophen 500 MG Tablet PO PRN (06:39)
[2018-03-01 08:42] LABS: Creatine Kinase 104 U/L (26-192)
[2018-03-01] MEDS ORDERED: Aspirin 325 MG Tablet PO SCH (09:00)
[2018-03-01 09:49] VITALS: RESP 18
[2018-03-01] MEDS ORDERED: amLODIPine 5 MG Tablet PO SCH (10:30)
--- NOTE | 2018-03-01 11:05 | P.HPCA ---
History of Present Illness Primary Care Physician: Ambar Bowers MD, R3 Chief Complaint: Chest pain History of Present Illness: This is a 42-year-old female that presents to the emergency department history of hypertension and tobacco abuse with complaint of developing a discomfort last evening around 5:00. States it is worsened with movement. Lasted for greater than 12 hours. Found nothing to help the discomfort. Denies associated shortness of breath, nausea, or diaphoresis. States it was tender pressed on the area last evening but is no longer that way. Also states that she currently does not have a chest discomfort. Denies stating she had a tubal ligation. Patient is a smoker. Denies family history of CAD. Patient is a tubal ligation. - Diagnosis (1) Chest pain (2) Tobacco abuse (3) Hypertension Inpatient Certification: I certify that the inpatient services were ordered in accordance with Medicare regulations governing the order. This includes certification that hospital inpatient services are reasonable and necessary and in the case of services not specified as inpatient-only under 42 CFR 419.22(n), that they are appropriately provided as inpatient services in accordance to with the 2-midnight benchmark under 43 CFR 412.3(e) Review of Systems General: Patient denies fevers, chills, and recent travel. HEENT: Patient denies headache, sore throat, difficulty swallowing. Cardiovascular: Has the chest discomfort as mentioned above. Denies sensation of heart beating rapidly or irregularly. No syncope. Respiratory: Denies shortness of breath or inspirational chest discomfort. Denies coughing wheezing or hemoptysis. GI: Patient denies nausea, vomiting, diarrhea, abdominal pain, bloody stools. Musculoskeletal: Patient denies joint pain or edema. Denies calf pain or edema. Neurovascular: Patient denies numbness, tingling, weakness in extremities. Denies headache. Endocrine: Denies polyuria and polydipsia. Hematologic: Denies easy bruising. Skin: Denies rash or itching. PMFSH - History History Provided By: Patient - Medical History Medical History: Medical History (Last Reviewed 03/01/18 @ 04:41 by Deedee Stack MD) Hypertension (Acute) - Surgical History Surgical History: Surgical History (Last Reviewed 03/01/18 @ 04:41 by Deedee Stack MD) Hx of tubal ligation (Acute) - Tobacco History Smoking Status: Former smoker - Alcohol History How Often Do You Have a Drink Containing Alcohol: Monthly or less - Substance Use History Substance History: No History of Abuse - Travel History Recent Travel in the [place] Within the Last 8 Weeks: No Recent Travel Out of the Country Within the Last 8 Weeks: No - Immunization History Tetanus Immunization: <5 Years Hx Influenza Vaccine This Season: Yes Medications and Allergies Active Medications: Active Medications Acetaminophen (Tylenol) 500 mg PO Q4H PRN PRN Reason: HEADACHE Amlodipine Besylate (Norvasc) 5 mg PO DAILY [facility] Last Admin: 03/01/18 10:26 Dose: 5 mg Aspirin (Aspirin) 325 mg PO DAILY [facility] Last Admin: 03/01/18 10:26 Dose: 325 mg Morphine Sulfate (Morphine Inj) 2 mg IV.PUSH Q4H PRN PRN Reason: PAIN SCALE 8 TO 10 Nitroglycerin (Nitrostat Sl) 0.4 mg SL Q5M PRN PRN Reason: CHEST PAIN Sodium Chloride (Ns Flush) 2 ml IV.FLUSH BID [facility] Last Admin: 03/01/18 10:26 Dose: 2 ml Sodium Chloride (Ns Flush) 2 ml IV.FLUSH PRN PRN PRN Reason: FLUSH AFTER USING IV ACCESS Allergies Allergy/AdvReac Type Severity Reaction Status Date / Time No Known Allergies Allergy Verified 03/01/18 02:30 Home Medications Medication Instructions Recorded Confirmed Type metoprolol ta-hydrochlorothiaz 1 tab PO DAILY 03/01/18 03/01/18 History Exam Vital signs: Vital Signs 03/01/18 02:26 03/01/18 04:01 03/01/18 09:00 Temperature 98.2 F 97.6 F 98.0 F Pulse Rate 64 75 65 Respiratory Rate 20 20 18 Blood Pressure 166/96 H 150/93 H 157/90 H Pulse Oximetry 100 100 99 Intake & Output 02/28/18 03/01/18 03/01/18 18:59 06:59 18:59 Weight 50.802 kg Narrative: GENERAL: This is a well-nourished, well-developed patient, in no apparent distress. Patient speaks in clear complete sentences. Patient is pleasant. HEENT: Head is atraumatic and normocephalic. Neck is supple without lymphadenopathy and trachea is midline. No JVD or carotid bruits. CARDIOVASCULAR: Regular rate and rhythm without murmurs, gallops, or rubs. RESPIRATORY: Clear to auscultation. Breath sounds equal bilaterally. No wheezes , rales, or rhonchi. Chest wall is nontender. No use of accessory muscles. GASTROINTESTINAL: Abdomen is nontender, nondistended. Abdomen soft. No obvious pulsatile mass or bruit. No CVA tenderness. Strong femoral pulses bilaterally. Normal bowel sounds in all quadrants. MUSCULOSKELETAL: Patient is moving upper and lower extremities freely. No calf tenderness or edema, no Homans sign. Strong pulses in upper and lower extremities. NEUROLOGICAL: Patient is alert and oriented. Cranial nerves 2-12 are grossly intact. No focal deficits and speech is clear. SKIN: No rash and turgor is normal. Results 03/01/18 04:50 03/01/18 04:50 Cardiac Enzymes 03/01/18 03/01/18 Range/Units 04:50 07:50 CK-MB (CK-2) Less than 0.5 L (0.5-3.6) ng/mL Troponin I Less than 0.02 L Less than 0.02 L (0.02-0.05) ng/mL Coagulation 03/01/18 Range/Units 04:50 PT 10.0 (9.8-11.6) sec APTT 24.9 (24.3-30.1) sec CBC 03/01/18 Range/Units 04:50 WBC 5.0 (4.0-11.0) th/mm3 RBC 4.18 (4.00-5.30) mil/mm3 Hgb 11.7 (11.6-15.3) gm/dL Hct 36.0 (35.0-46.0) % Plt Count 316 (150-450) th/mm3 Neut # (Auto) 2.0 (1.8-7.7) th/mm3 Lymph # (Auto) 2.4 (1.0-4.8) th/mm3 Bennett # (Auto) 0.4 (0.0-0.9) th/mm3 Eos # (Auto) 0.2 (0.0-0.4) th/mm3 Baso # (Auto) 0.1 (0.0-0.2) th/mm3 Comprehensive Metabolic Panel 03/01/18 Range/Units 04:50 Sodium 138 (136-145) meq/L Potassium 3.1 L (3.5-5.1) meq/L Chloride 102 (98-107) meq/L Carbon Dioxide 25.3 (21.0-32.0) meq/L BUN 12 (7-18) mg/dL Creatinine 0.87 (0.50-1.00) mg/dL Calcium 9.1 (8.5-10.1) mg/dL Intake and Output 02/28/18 03/01/18 03/01/18 22:59 06:59 14:59 Other: Weight 50.802 kg EKG interpretations - EKG EKG shows: sinus rhythm (EKGs a sinus rhythm without significant ST segment depressions or elevations.) Caprini VTE Risk Assessment Caprini VTE Risk Assessment: No/Low Risk (score <= 1) Caprini Risk Assessment Model: Point Value = 1 Point Value = 2 Point Value = 3 Point Value = 5 Age 41-60 Minor surgery BMI > 25 kg/m2 Swollen legs Varicose veins or History of unexplained or recurrent spontaneous Oral contraceptives or hormone replacement Sepsis (< 1 month) Serious lung disease, including pneumonia (< 1 month) Abnormal pulmonary function Acute myocardial infarction Congestive heart failure (< 1 month) History of inflammatory bowel disease Medical patient at bed rest Age 61-74 Arthroscopic surgery Major open surgery (> 45 min) Laparoscopic surgery (> 45 min) Malignancy Confined to bed (> 72 hours) Immobilizing plaster cast Central venous access Age >= 75 History of VTE Family history of VTE Factor V Leiden Prothrombin [id number] Lupus anticoagulant Anticardiolipin antibodies Elevated serum homocysteine Heparin-induced thrombocytopenia Other congenital or acquired thrombophilia Stroke (< 1 month) Elective arthroplasty Hip, pelvis, or leg fracture Acute spinal cord injury (< 1 month) Prophylaxis Regimen: Total Risk Factor Score Risk Level Prophylaxis Regimen 0-1 Low Early ambulation 2 Moderate Order ONE of the following: *Sequential Compression Device (SCD) *Heparin 5000 units SQ BID 3-4 Higher Order ONE of the following medications: *Heparin 5000 units SQ TID *Enoxaparin/Lovenox 40 mg SQ daily (WT < 150 kg, CrCl > 30 mL/min) *Enoxaparin/Lovenox 30 mg SQ daily (WT < 150 kg, CrCl > 10-29 mL/min) *Enoxaparin/Lovenox 30 mg SQ BID (WT < 150 kg, CrCl > 30 mL/min) AND/OR *Sequential Compression Device (SCD) 5 or more Highest Order ONE of the following medications: *Heparin 5000 units SQ TID (Preferred with Epidurals) *Enoxaparin/Lovenox 40 mg SQ daily (WT < 150 kg, CrCl > 30 mL/min) *Enoxaparin/Lovenox 30 mg SQ daily (WT < 150 kg, CrCl > 10-29 mL/min) *Enoxaparin/Lovenox 30 mg SQ BID (WT < 150 kg, CrCl > 30 mL/min) AND *Sequential Compression Device (SCD) Assessment and Plan - Assessment (1) Chest pain Code(s): R07.9 - Chest pain, unspecified Status: Acute (2) Tobacco abuse Code(s): Z72.0 - Tobacco use Status: Acute (3) Hypertension Code(s): I10 - Essential (primary) hypertension Status: Acute - Plan * Chest pain: Patient has had serial cardiac enzymes and EKGs for ruling out purposes. She was seen by Dr. Wadsworth of cardiology in the chest pain center and will undergo a Gabo protocol ETT. She will be discharged home if her stress test is nonischemic with instructions to follow-up with PCP and return to ED for interval issues. * Hypertension: Continue medication and add amlodipine. Patient should monitor blood pressure readings and write them in internal to further discuss with her PCP for further management. * Tobacco abuse: Patient counseled on the importance of smoking cessation. Patient is stable at this time. She is agreeable to this plan.
--- NOTE | 2018-03-01 16:38 | TR ---
Date Performed: 03/01/2018 Time Performed: 12:00:52 DOCTOR: Kusum Wadsworth DRUG LIST: CLINICAL HISTORY: REASON FOR TEST: REASON FOR ENDING: OBSERVATION: CONCLUSION: CUCO PROTOCOL. THE PATIENT'S CONSTANT CHEST DISCOMFORT DID NOT WORSEN. TEST STOPPED AFTER REACHING GOAL HR SECONDARY TO SOB AND LEG FATIGUE.Maximum TY=813 % Max HR Achieved=86.0% Maxim um RW=505/78 Total Exercise Time=8:10 COMMENTS: No ischemia
--- NOTE | 2018-03-01 16:41 | ECG ---
Date Performed: 03/01/2018 Time Performed: 07:50:22 PTAGE: 42 years EKG: SINUS BRADYCARDIA MODERATE VOLTAGE CRITERIA FOR LVH, CONSIDER NORMAL VARIANT BORDERLINE ECG Since PREVIOUS TRACING , no significant change noted PREVIOUS TRACIN03/01/2018 02.33 DOCTOR: Kusum Wadsworth Interpretating Date/Time 03/01/2018 16:40:58
--- NOTE | 2018-03-01 16:42 | ECG ---
Date Performed: 03/01/2018 Time Performed: 02:33:37 PTAGE: 42 years EKG: Sinus rhythm VOLTAGE CRITERIA FOR LVH ABNORMAL ECG Since PREVIOUS TRACING , no significant change noted PREVIOUS TRACIN10/12/2017 06.44 DOCTOR: Kusum Wadsworth Interpretating Date/Time 03/01/2018 16:41:41
[2018-03-02 12:35] VITALS: BP 157/90; PULSE 65; TEMP 98; O2SAT 99
== END 2018-03-01 20:00 | disposition home or self-care (01) ==
LOC: NEDA 02:05 → NEPC 02:05 → NEDA 10:00
PROVIDERS: ADMIT Internal Medicine Cardiovascular Disease; ATTEND Internal Medicine Cardiovascular Disease
DX: Z79.899 Other long term (current) drug therapy; F17.200 Nicotine dependence, unspecified, uncomplicated; I10 Essential (primary) hypertension; R07.89 Other chest pain; Z79.82 Long term (current) use of aspirin